=== PATIENT | male | born 1965 | race Caucasian/White ===

== ENCOUNTER → 2018-07-18 | Outpatient (CLI) | payer BC ==
[2018-07-18 08:39] LABS: BASOPHILS % 0.6 % (0.0-2.0); EOSINOPHILS % 3.5 % (0.0-5.0); HEMOGLOBIN. 16.7 g/dL (14.0-18.0); LYMPHOCYTES % 30.1 % (20.0-50.0); MEAN CORPUSCULAR HEMOGLOBIN 31.5 pg (28.0-32.0); MEAN CORPUSCULAR VOLUME 90.4 fL (80.0-94.0); MEAN PLATELET VOLUME 7.2 fl (7.4-10.4); MONOCYTES % 7.6 % (2.0-8.0); NEUTROPHILS % 58.2 % (40.0-76.0); PLATELET 332 x1000/uL (130-400); RED BLOOD CELL COUNT 5.31 mill/uL (4.7-6.1); RED CELL DISTRIBUTION WIDTH 13.3 % (11.6-14.6)
[2018-07-18 08:46] LABS: CHLORIDE 108 mEq/L (98-107)
[2018-07-18 08:53] LABS: LDL CHOLESTEROL 94 mg/dL (5-100); TOTAL IRON BINDING CAPACITY 276 ug/dL (250-450)
[2018-07-18 08:55] LABS: HDL CHOLESTEROL 40 mg/dL (40-59)
[2018-07-18 12:12] LABS: PROSTRATE SPECIFIC AG TOTAL 1.18 ng/mL (0.0-4.0)
== END | disposition home or self-care (01) ==
LOC: LAB 07:36
PROVIDERS: ATTEND Internal Medicine Geriatric Medicine
DX: Z00.01 Encounter for general adult medical examination with abnormal findings (principal); N39.0 Urinary tract infection, site not specified
CPT/HCPCS: 36415; 80061; 82607; 83036; 83540; 83550; 84153; 84443; 86592; G0103

== ENCOUNTER → 2018-11-06 | Outpatient (CLI) | payer BC | END | disposition home or self-care (01) | LOC: CARD 09:54 | PROVIDERS: ATTEND Specialist | DX: I10 Essential (primary) hypertension (principal); R00.2 Palpitations | CPT/HCPCS: 93306 ==

== ENCOUNTER → 2018-12-28 | Outpatient (CLI) | payer BC ==
[2018-12-28 14:04] LABS: CHLORIDE 108 mEq/L (98-107)
[2018-12-28 14:12] LABS: HDL CHOLESTEROL 43 mg/dL (40-59); LDL CHOLESTEROL 109 mg/dL (5-100)
== END | disposition home or self-care (01) ==
LOC: LAB 13:11
PROVIDERS: ATTEND Internal Medicine Geriatric Medicine
DX: I10 Essential (primary) hypertension (principal); E78.5 Hyperlipidemia, unspecified
CPT/HCPCS: 36415; 80061

== ENCOUNTER → 2019-01-06 | Outpatient (CLI) | payer BC | END | disposition home or self-care (01) | LOC: MRI 09:13 | PROVIDERS: ATTEND Internal Medicine Geriatric Medicine | DX: S86.012A Strain of left Achilles tendon, initial encounter (principal); X58.XXXA Exposure to other specified factors, initial encounter; Y93.89 Activity, other specified; Y92.89 Other specified places as the place of occurrence of the external cause; Y99.8 Other external cause status | CPT/HCPCS: 73721 ==

== ENCOUNTER → 2019-05-25 | Outpatient (CLI) | payer BC ==
[2019-05-25 10:28] LABS: BASOPHILS % 0.6 % (0.0-2.0); EOSINOPHILS % 4.5 % (0.0-5.0); HEMATOCRIT. 50.2 % (42.0-52.0); HEMOGLOBIN. 17.4 g/dL (14.0-18.0); LYMPHOCYTES % 27.3 % (20.0-50.0); MEAN CORPUSCULAR HEMOGLOBIN 31.6 pg (28.0-32.0); MEAN CORPUSCULAR VOLUME 91.3 fL (80.0-94.0); MEAN PLATELET VOLUME 7.6 fl (7.4-10.4); MONOCYTES % 7.7 % (2.0-8.0); NEUTROPHILS % 59.9 % (40.0-76.0); PLATELET 304 x1000/uL (130-400); RED CELL DISTRIBUTION WIDTH 13.4 % (11.6-14.6)
[2019-05-25 10:44] LABS: CHLORIDE 106 mEq/L (98-107)
[2019-05-25 10:53] LABS: LDL CHOLESTEROL 111 mg/dL (5-100)
[2019-05-25 10:54] LABS: HDL CHOLESTEROL 42 mg/dL (40-59)
== END | disposition home or self-care (01) ==
LOC: LAB 09:41
PROVIDERS: ATTEND Internal Medicine Geriatric Medicine
DX: I10 Essential (primary) hypertension (principal); E78.5 Hyperlipidemia, unspecified
CPT/HCPCS: 36415; 80053; 80061; 83735; 85025

== ENCOUNTER → 2020-01-14 | Outpatient (CLI) | payer BC | END | disposition home or self-care (01) | LOC: RAD 15:26 | PROVIDERS: ATTEND Podiatrist Foot & Ankle Surgery | DX: M19.072 Primary osteoarthritis, left ankle and foot (principal); M19.071 Primary osteoarthritis, right ankle and foot; M25.774 Osteophyte, right foot; M25.775 Osteophyte, left foot | CPT/HCPCS: 73630 ==

== ENCOUNTER → 2020-02-01 | Outpatient (CLI) | payer BC ==
[2020-02-01 15:24] LABS: CHLORIDE 108 mEq/L (98-107)
[2020-02-01 15:30] LABS: HDL CHOLESTEROL 49 mg/dL (40-59); TOTAL IRON BINDING CAPACITY 288 ug/dL (250-450)
[2020-02-01 15:32] LABS: BASOPHILS % 0.4 % (0.0-2.0); EOSINOPHILS % 1.8 % (0.0-5.0); HEMATOCRIT. 48.3 % (42.0-52.0); HEMOGLOBIN. 16.4 g/dL (14.0-18.0); LDL CHOLESTEROL 114 mg/dL (5-100); LYMPHOCYTES % 23.2 % (20.0-50.0); MEAN CORPUSCULAR HEMOGLOBIN 31.3 pg (28.0-32.0); MEAN CORPUSCULAR VOLUME 92.5 fL (80.0-94.0); MEAN PLATELET VOLUME 7.6 fl (7.4-10.4); MONOCYTES % 6.8 % (2.0-8.0); NEUTROPHILS % 67.8 % (40.0-76.0); PLATELET 319 x1000/uL (130-400); RED BLOOD CELL COUNT 5.22 mill/uL (4.7-6.1); RED CELL DISTRIBUTION WIDTH 13.3 % (11.6-14.6)
[2020-02-01 15:42] LABS: FOLIC ACID (FOLATE) SERUM 15.8 ng/mL (>5.38)
[2020-02-03 14:45] LABS: PROSTRATE SPECIFIC AG TOTAL 0.98 ng/mL (0.0-4.0)
== END | disposition home or self-care (01) ==
LOC: LAB 14:31
PROVIDERS: ATTEND Internal Medicine Geriatric Medicine
DX: Z00.01 Encounter for general adult medical examination with abnormal findings (principal); I10 Essential (primary) hypertension; E78.5 Hyperlipidemia, unspecified; F41.1 Generalized anxiety disorder
CPT/HCPCS: 36415; 80053; 80061; 82306; 82607; 82746; 83036; 83540; 83550; 84153; 84443; 84550; 85025; 86592; G0103

== ENCOUNTER 2020-05-16 09:13 | Emergency (ER) | payer BC ==
[~2020-05-16] VITALS: Ht 165.1 cm; Wt 87.0 kg
[2020-05-16] MEDS ORDERED: ASPIRIN 81MG TABLET PO ONE (09:30)
[2020-05-16] MEDS ORDERED: ACETAMINOPHEN 325MG TABLET PO ONE (09:45)
[2020-05-16 10:37] LABS: BASOPHILS % 0.2 % (0.0-2.0); EOSINOPHILS % 0.1 % (0.0-5.0); HEMATOCRIT. 50.6 % (42.0-52.0); HEMOGLOBIN. 17.4 g/dL (14.0-18.0); MEAN CORPUSCULAR HEMOGLOBIN 31.1 pg (28.0-32.0); MEAN CORPUSCULAR VOLUME 90.7 fL (80.0-94.0); MEAN PLATELET VOLUME 7.7 fl (7.4-10.4); MONOCYTES % 9.9 % (2.0-8.0); NEUTROPHILS % 65.8 % (40.0-76.0); PLATELET 214 x1000/uL (130-400); RED BLOOD CELL COUNT 5.58 mill/uL (4.7-6.1); RED CELL DISTRIBUTION WIDTH 12.7 % (11.6-14.6)
[2020-05-16 10:43] LABS: CHLORIDE 102 mEq/L (98-107)
[2020-05-16] MEDS ORDERED: POTASSIUM CHLORIDE 20MEQ TABLET SR PO SCH (10:45)
[2020-05-16] MEDS ORDERED: AMOX-424 MT (11:04)
[2020-05-16] MEDS ORDERED: DOXY150T9 MT (11:05)
[2020-05-16 13:00] VITALS: BP 125/86
== END 2020-05-16 13:00 | disposition home or self-care (01) ==
LOC: ER 09:13
DX: U07.1 COVID-19 (principal); J12.89 Other viral pneumonia; I10 Essential (primary) hypertension; E87.6 Hypokalemia; R74.01 Elevation of levels of liver transaminase levels
CPT/HCPCS: 36415; 71045; 80053; 83880; 84484; 85025; 87635; 93005; 99285

== ENCOUNTER → 2020-09-26 | Outpatient (CLI) | payer BC ==
[~2020-09-26] MED LIST: AMOX-424 MT; DOXY150T9 MT
[2020-09-26 10:20] LABS: CHLORIDE 108 mEq/L (98-107)
== END | disposition home or self-care (01) ==
LOC: LAB 09:14
PROVIDERS: ATTEND Internal Medicine Geriatric Medicine
DX: E87.6 Hypokalemia (principal)
CPT/HCPCS: 36415; 80048

== ENCOUNTER → 2020-11-03 | Outpatient (CLI) | payer BC | END | disposition home or self-care (01) | LOC: CT 09:57 | PROVIDERS: ATTEND Otolaryngology Otolaryngology/Facial Plastic Surgery | DX: J34.2 Deviated nasal septum (principal); J34.89 Other specified disorders of nose and nasal sinuses; J34.3 Hypertrophy of nasal turbinates; J30.9 Allergic rhinitis, unspecified; M47.812 Spondylosis without myelopathy or radiculopathy, cervical region; M48.02 Spinal stenosis, cervical region | CPT/HCPCS: 70486 ==

== ENCOUNTER → 2020-12-20 | Outpatient (CLI) | payer BC ==
[2020-12-20 09:52] LABS: CHLORIDE 108 mEq/L (98-107)
[2020-12-20 10:01] LABS: HDL CHOLESTEROL 43 mg/dL (40-59); LDL CHOLESTEROL 121 mg/dL (5-100)
== END | disposition home or self-care (01) ==
LOC: LAB 09:27
PROVIDERS: ATTEND Internal Medicine Geriatric Medicine
DX: I10 Essential (primary) hypertension (principal); E78.5 Hyperlipidemia, unspecified
CPT/HCPCS: 36415; 80053; 80061

== ENCOUNTER → 2021-01-03 | Outpatient (CLI) | payer BC ==
[2021-01-03 10:15] LABS: CLARITY URINE CLEAR (CLEAR); COLOR URINE YELLOW (YELLOW); KETONES URINE NEGATIVE (NEGATIVE); LEUKOCYTE ESTERASE URINE NEGATIVE (NEGATIVE); NITRITE URINE NEGATIVE (NEGATIVE); OCCULT BLOOD URINE NEGATIVE (NEGATIVE); PH URINE 5.5 (4.5-8.0); PROTEIN URINE TRACE (NEGATIVE); SPECIFIC GRAVITY URINE 1.023 (1.005-1.030); UROBILINOGEN URINE 0.2 E.U./dL (0.2-1.0)
== END | disposition home or self-care (01) ==
LOC: LAB 09:45
PROVIDERS: ATTEND Internal Medicine Geriatric Medicine
DX: N39.0 Urinary tract infection, site not specified (principal)
CPT/HCPCS: 81003

== ENCOUNTER → 2021-01-24 | Outpatient (CLI) | payer BC | END | disposition home or self-care (01) | LOC: US 09:12 | PROVIDERS: ATTEND Internal Medicine Geriatric Medicine | DX: N40.0 Benign prostatic hyperplasia without lower urinary tract symptoms (principal); R35.0 Frequency of micturition | CPT/HCPCS: 76857 ==

== ENCOUNTER 2021-04-18 13:11 | Inpatient (IN) | payer BC ==
[~2021-04-18] VITALS: Ht 165.1 cm; Wt 77.6 kg
[2021-04-18] MEDS ORDERED: MORPHINE SULFATE 4 MG/ML CPJ (NOT FOR IM USE) IV STA (13:50)
[2021-04-18] MEDS ORDERED: ONDANSETRON HCL 4MG/2ML INJ IV STA (13:50)
[2021-04-18] MEDS ORDERED: HYDRALAZINE 20MG/ML VIAL IV ONE (14:00)
[2021-04-18] MEDS ORDERED: GLUCAGON,HUMAN RECOMBINANT 1MG/VIAL IV ONE (14:00)
[2021-04-18] MEDS ORDERED: SODIUM CHLORIDE 0.9% 1,000 ML IV ONE (14:00)
[2021-04-18 15:36] LABS: BASOPHILS % 0.1 % (0.0-2.0); EOSINOPHILS % 0.1 % (0.0-5.0); HEMOGLOBIN. 16.7 g/dL (14.0-18.0); LYMPHOCYTES % 7.7 % (20.0-50.0); MEAN CORPUSCULAR HEMOGLOBIN 31.3 pg (28.0-32.0); MEAN CORPUSCULAR VOLUME 90.3 fL (80.0-94.0); MEAN PLATELET VOLUME 7.4 fl (7.4-10.4); MONOCYTES % 5.3 % (2.0-8.0); NEUTROPHILS % 86.8 % (40.0-76.0); PLATELET 347 x1000/uL (130-400); RED BLOOD CELL COUNT 5.32 mill/uL (4.7-6.1); RED CELL DISTRIBUTION WIDTH 13.3 % (11.6-14.6)
[2021-04-18 15:43] LABS: CHLORIDE 105 mEq/L (98-107)
[2021-04-18 15:46] LABS: CLARITY URINE CLEAR (CLEAR); COLOR URINE YELLOW (YELLOW); KETONES URINE NEGATIVE (NEGATIVE); LEUKOCYTE ESTERASE URINE NEGATIVE (NEGATIVE); NITRITE URINE NEGATIVE (NEGATIVE); OCCULT BLOOD URINE TRACE (NEGATIVE); PROTEIN URINE NEGATIVE (NEGATIVE); SPECIFIC GRAVITY URINE 1.003 (1.005-1.030); UROBILINOGEN URINE 0.2 E.U./dL (0.2-1.0)
[2021-04-18] MEDS ORDERED: ACETAMINOPHEN 325MG TABLET PO PRN (20:30)
[2021-04-18] MEDS ORDERED: IPRATROPIUM/ALBUTEROL 0.5-3(2.5)MG/3ML NEB HHN PRN (20:30)
[2021-04-18] MEDS ORDERED: LACTULOSE 20G/30ML UDC PO NR (20:30)
[2021-04-18] MEDS ORDERED: CLONIDINE 0.1MG TABLET PO PRN (20:30)
[2021-04-18] MEDS ORDERED: MAGNESIUM/ALUMINUM HYDROXIDE/SIMETHICONE 30ML UDC PO PRN (20:30)
[2021-04-18] MEDS ORDERED: ONDANSETRON HCL 4MG/2ML INJ IV PRN (20:30)
[2021-04-18] MEDS ORDERED: PANTOPRAZOLE 40MG DR TABLET PO NR (20:30)
[2021-04-18 21:00] LABS: HEPATITIS B SURFACE ANTIGEN NEGATIVE
[2021-04-18] MEDS ORDERED: POTASSIUM CHLORIDE 20MEQ TABLET SR PO NR (21:41)
[2021-04-18] MEDS: NEBIVOLOL HCL 5 MG TABLET PO SCH (22:17)
[2021-04-18] MEDS: TAMSULOSIN HCL 0.4MG SR CAPSULE PO SCH (22:17)
[2021-04-18] MEDS: ENOXAPARIN 40MG/0.4ML SYR SUBCUT SCH (22:19)
[2021-04-18] MEDS: SODIUM CHL 0.45% + KCL 20MEQ/L 1,000 ML IV SCH (22:59)
[2021-04-19 05:29] LABS: BASOPHILS % 0.3 % (0.0-2.0); EOSINOPHILS % 0.5 % (0.0-5.0); HEMATOCRIT. 48.8 % (42.0-52.0); LYMPHOCYTES % 11.8 % (20.0-50.0); MEAN CORPUSCULAR HEMOGLOBIN 31.4 pg (28.0-32.0); MEAN CORPUSCULAR VOLUME 90.4 fL (80.0-94.0); MONOCYTES % 4.9 % (2.0-8.0); NEUTROPHILS % 82.5 % (40.0-76.0); RED CELL DISTRIBUTION WIDTH 13.3 % (11.6-14.6)
[2021-04-19] MEDS ORDERED: HYDRALAZINE 20MG/ML VIAL IV PRN (05:30)
[2021-04-19 05:34] LABS: CHLORIDE 107 mEq/L (98-107)
[2021-04-19 07:45] LABS: MEAN PLATELET VOLUME 7.7 fl (7.4-10.4); PLATELET 372 x1000/uL (130-400)
[2021-04-19] MEDS: SODIUM CHL 0.45% + KCL 20MEQ/L 1,000 ML IV SCH ×2 (08:30→22:00)
[2021-04-19] MEDS: PANTOPRAZOLE 40MG DR TABLET PO SCH (08:34)
[2021-04-19] MEDS: NEBIVOLOL HCL 5 MG TABLET PO SCH (08:40)
[2021-04-19] MEDS: TAMSULOSIN HCL 0.4MG SR CAPSULE PO SCH (08:40)
[2021-04-19] MEDS ORDERED: TAMSULOSIN HCL 0.4MG SR CAPSULE PO SCH (09:00)
[2021-04-19 10:30] VITALS: BP 124/85
[2021-04-19] MEDS: LACTULOSE 20G/30ML UDC PO SCH ×2 (14:11→21:59)
[2021-04-19 15:41] LABS: *BARBITURATES SCREEN URINE NEGATIVE (NEGATIVE); *BENZODIAZEPINES SCREEN URINE NEGATIVE (NEGATIVE); *COCAINE SCREEN URINE NEGATIVE (NEGATIVE); METHADONE URINE SCREEN NEGATIVE (NEGATIVE); OPIATES URINE SCREEN NEGATIVE (NEGATIVE); PHENCYCLIDINE URINE SCREEN NEGATIVE (NEGATIVE)
[2021-04-19 15:42] LABS: *AMPHETAMINES SCREEN URINE NEGATIVE (NEGATIVE); CANNABINOID URINE SCREEN NEGATIVE (NEGATIVE)
[2021-04-19 16:00] VITALS: BP 143/90
[2021-04-19 16:35] LABS: PROTHROMBIN TIME 11.1 sec (9.6-11.0)
[2021-04-19 20:00] VITALS: BP 149/100
[2021-04-19] MEDS: ENOXAPARIN 40MG/0.4ML SYR SUBCUT SCH (21:59)
[2021-04-20] VITALS: BP 152/92
[2021-04-20] MEDS: LACTULOSE 20G/30ML UDC PO SCH ×3 (06:35→20:53)
[2021-04-20] MEDS: PANTOPRAZOLE 40MG DR TABLET PO SCH (06:35)
[2021-04-20 06:45] LABS: BASOPHILS % 0.5 % (0.0-2.0); EOSINOPHILS % 5.3 % (0.0-5.0); HEMATOCRIT. 44.3 % (42.0-52.0); HEMOGLOBIN. 15.3 g/dL (14.0-18.0); LYMPHOCYTES % 25.3 % (20.0-50.0); MEAN CORPUSCULAR HEMOGLOBIN 31.7 pg (28.0-32.0); MEAN CORPUSCULAR VOLUME 91.9 fL (80.0-94.0); MEAN PLATELET VOLUME 8.4 fl (7.4-10.4); MONOCYTES % 8.9 % (2.0-8.0); PLATELET 300 x1000/uL (130-400); RED BLOOD CELL COUNT 4.82 mill/uL (4.7-6.1); RED CELL DISTRIBUTION WIDTH 13.5 % (11.6-14.6)
[2021-04-20] MEDS: SODIUM CHL 0.45% + KCL 20MEQ/L 1,000 ML IV SCH ×3 (06:47→20:54)
[2021-04-20 07:23] LABS: CHLORIDE 109 mEq/L (98-107)
[2021-04-20 08:00] VITALS: BP 151/101
[2021-04-20] MEDS: INFLUENZA VACCINE 05/PF 0.5 ML SYRINGE IM ONE ×2 (09:00→15:18)
[2021-04-20] MEDS ORDERED: POTASSIUM CHLORIDE 20MEQ TABLET SR PO SCH (09:00)
[2021-04-20] MEDS: TAMSULOSIN HCL 0.4MG SR CAPSULE PO SCH (09:15)
[2021-04-20] MEDS: NEBIVOLOL HCL 5 MG TABLET PO SCH (09:15)
[2021-04-20] MEDS: AMLODIPINE 5MG TABLET PO SCH (09:16)
[2021-04-20 12:00] VITALS: BP 145/95
[2021-04-20 16:00] VITALS: BP 136/97
[2021-04-20] MEDS: POTASSIUM CHLORIDE 20MEQ TABLET SR PO SCH (17:17)
[2021-04-20 20:00] VITALS: BP 148/92
[2021-04-20] MEDS: ENOXAPARIN 40MG/0.4ML SYR SUBCUT SCH (20:53)
[2021-04-21] VITALS: BP 162/92
[2021-04-21 04:00] VITALS: BP 152/92
[2021-04-21] MEDS: SODIUM CHL 0.45% + KCL 20MEQ/L 1,000 ML IV SCH (05:52)
[2021-04-21] MEDS: LACTULOSE 20G/30ML UDC PO SCH (05:52)
[2021-04-21] MEDS: POTASSIUM CHLORIDE 20MEQ TABLET SR PO SCH (05:52)
[2021-04-21] MEDS: PANTOPRAZOLE 40MG DR TABLET PO SCH (05:52)
[2021-04-21 06:25] LABS: BASOPHILS % 0.4 % (0.0-2.0); EOSINOPHILS % 6.2 % (0.0-5.0); HEMATOCRIT. 44.8 % (42.0-52.0); HEMOGLOBIN. 15.6 g/dL (14.0-18.0); LYMPHOCYTES % 28.4 % (20.0-50.0); MEAN CORPUSCULAR HEMOGLOBIN 31.9 pg (28.0-32.0); MEAN CORPUSCULAR VOLUME 91.8 fL (80.0-94.0); MEAN PLATELET VOLUME 8.2 fl (7.4-10.4); MONOCYTES % 9.6 % (2.0-8.0); NEUTROPHILS % 55.4 % (40.0-76.0); PLATELET 294 x1000/uL (130-400); RED BLOOD CELL COUNT 4.89 mill/uL (4.7-6.1); RED CELL DISTRIBUTION WIDTH 13.4 % (11.6-14.6)
[2021-04-21 06:27] LABS: CHLORIDE 108 mEq/L (98-107)
[2021-04-21 08:00] VITALS: BP 145/100
[2021-04-21] MEDS: TAMSULOSIN HCL 0.4MG SR CAPSULE PO SCH (08:09)
[2021-04-21] MEDS: NEBIVOLOL HCL 5 MG TABLET PO SCH (08:09)
[2021-04-21] MEDS: AMLODIPINE 5MG TABLET PO SCH (08:09)
[2021-04-21] MEDS ORDERED: LACT10SO3 MT (09:35)
[2021-04-21] MEDS ORDERED: PANT40TA51 PO (09:35)
[2021-04-21] MEDS ORDERED: LACT10SO7 PO (09:35)
[2021-04-21] MEDS ORDERED: PANT40TA51 MT (09:35)
[2021-04-21 11:32] VITALS: BP 145/92
[2021-04-21] MEDS ORDERED: LACTULOSE 20G/30ML UDC PO SCH (14:00)
== END 2021-04-21 18:20 | disposition home or self-care (01) | DRG 443 ==
LOC: ER 13:11 → 8WST 18:08 → EDBEDREQTM 18:13 → EDBEDREQ 18:13 → EDBEDREQSVC 21:43 → EDBEDREQTM 04-19 06:36 → ENRESERV 04-19 09:19
PROVIDERS: ADMIT Internal Medicine Geriatric Medicine; ATTEND Internal Medicine Geriatric Medicine
DX: K72.00 Acute and subacute hepatic failure without coma (principal); K57.90 Diverticulosis of intestine, part unspecified, without perforation or abscess without bleeding; N40.0 Benign prostatic hyperplasia without lower urinary tract symptoms; N20.0 Calculus of kidney; R73.9 Hyperglycemia, unspecified; I10 Essential (primary) hypertension; E87.6 Hypokalemia; K76.0 Fatty (change of) liver, not elsewhere classified; R13.10 Dysphagia, unspecified; D72.829 Elevated white blood cell count, unspecified; Z20.822 Contact with and (suspected) exposure to COVID-19; R16.2 Hepatomegaly with splenomegaly, not elsewhere classified; E80.6 Other disorders of bilirubin metabolism; Z90.49 Acquired absence of other specified parts of digestive tract; Z79.2 Long term (current) use of antibiotics; Z79.899 Other long term (current) drug therapy
CPT/HCPCS: 36415; 70360; 71045; 74176; 76700; 80053; 80076; 80305; 80320; 81003; 82105; 82140; 82248; 83036; 83735; 84443; 84484; 85025; 86038; 86301; 86705; 86709; 86803; 87340; 87426; 90686; 93005; 99285; J0360; J1610; J1650; J2270; J2405; J3480; J7030; J7040; G0480

== ENCOUNTER → 2021-04-25 | Outpatient (CLI) | payer BC ==
[~2021-04-25] MED LIST changes: +LACT10SO3 MT; +LACT10SO7 PO; +PANT40TA51 MT; +PANT40TA51 PO
[2021-04-25 19:02] LABS: BASOPHILS % 0.5 % (0.0-2.0); EOSINOPHILS % 2.4 % (0.0-5.0); HEMATOCRIT. 47.1 % (42.0-52.0); HEMOGLOBIN. 16.3 g/dL (14.0-18.0); MEAN CORPUSCULAR HEMOGLOBIN 31.7 pg (28.0-32.0); MEAN CORPUSCULAR VOLUME 91.6 fL (80.0-94.0); MEAN PLATELET VOLUME 7.4 fl (7.4-10.4); MONOCYTES % 6.8 % (2.0-8.0); NEUTROPHILS % 61.3 % (40.0-76.0); PLATELET 319 x1000/uL (130-400); RED BLOOD CELL COUNT 5.14 mill/uL (4.7-6.1); RED CELL DISTRIBUTION WIDTH 13.4 % (11.6-14.6)
[2021-04-25 19:12] LABS: PROTHROMBIN TIME 10.9 sec (9.6-11.0)
[2021-04-25 19:18] LABS: CHLORIDE 107 mEq/L (98-107)
[2021-04-25 19:20] LABS: AMYLASE 99 IU/L (25-115); GAMMA GLUTAMYL TRANSPEPTIDASE 280 IU/L (11-50)
[2021-04-27 07:11] LABS: HBSAG SCREEN Negative (Negative); HEPATITIS A ANTIBODY TOTAL Positive (Negative); HEPATITIS C AB <0.1 s/co ratio (0.0-0.9)
== END | disposition home or self-care (01) ==
LOC: LAB 18:16
PROVIDERS: ATTEND Internal Medicine Gastroenterology
DX: Z00.00 Encounter for general adult medical examination without abnormal findings (principal)
CPT/HCPCS: 36415; 80053; 82105; 82150; 82378; 82977; 85025; 86301; 86706; 86708; 86803; 87340

== ENCOUNTER → 2021-05-03 | Outpatient (CLI) | payer BC ==
[~2021-05-03] MED LIST changes: +GADOTERATE MEGLUMINE 5 MMOL/10 ML VIAL IV ONE
== END | disposition home or self-care (01) ==
LOC: MRI 10:20
PROVIDERS: ATTEND Internal Medicine Gastroenterology
DX: K76.89 Other specified diseases of liver (principal); K76.0 Fatty (change of) liver, not elsewhere classified; R10.9 Unspecified abdominal pain
CPT/HCPCS: 74183; A9577

== ENCOUNTER → 2021-07-21 | Outpatient (CLI) | payer BC ==
[~2021-07-21] MED LIST changes: -GADOTERATE MEGLUMINE 5 MMOL/10 ML VIAL IV ONE
[2021-07-21 08:25] LABS: CHLORIDE 108 mEq/L (98-107)
== END | disposition home or self-care (01) ==
LOC: LAB 07:52
PROVIDERS: ATTEND Internal Medicine Geriatric Medicine
DX: I10 Essential (primary) hypertension (principal)
CPT/HCPCS: 36415; 80053; 86301

== ENCOUNTER → 2021-08-15 | Outpatient (CLI) | payer BC | END | disposition home or self-care (01) | LOC: RAD 15:44 | PROVIDERS: ATTEND Internal Medicine Geriatric Medicine | DX: M25.561 Pain in right knee (principal) | CPT/HCPCS: 73562 ==

== ENCOUNTER → 2021-08-24 | Outpatient (CLI) | payer BC | END | disposition home or self-care (01) | LOC: MRI 15:57 | DX: S83.232A Complex tear of medial meniscus, current injury, left knee, initial encounter (principal); M17.12 Unilateral primary osteoarthritis, left knee; M25.462 Effusion, left knee; M25.762 Osteophyte, left knee; R93.6 Abnormal findings on diagnostic imaging of limbs; X58.XXXA Exposure to other specified factors, initial encounter; Y93.89 Activity, other specified; Y92.89 Other specified places as the place of occurrence of the external cause; Y99.8 Other external cause status | CPT/HCPCS: 73721 ==

== ENCOUNTER → 2021-09-26 | Outpatient (CLI) | payer BC ==
[2021-09-26 16:56] LABS: BASOPHILS % 0.6 % (0.0-2.0); EOSINOPHILS % 4.7 % (0.0-5.0); HEMATOCRIT. 45.6 % (42.0-52.0); HEMOGLOBIN. 15.8 g/dL (14.0-18.0); LYMPHOCYTES % 30.4 % (20.0-50.0); MEAN CORPUSCULAR HEMOGLOBIN 30.9 pg (28.0-32.0); MEAN CORPUSCULAR VOLUME 89.2 fL (80.0-94.0); MEAN PLATELET VOLUME 6.8 fl (7.4-10.4); MONOCYTES % 9.2 % (2.0-8.0); NEUTROPHILS % 55.1 % (40.0-76.0); PLATELET 348 x1000/uL (130-400); RED BLOOD CELL COUNT 5.11 mill/uL (4.7-6.1); RED CELL DISTRIBUTION WIDTH 13.2 % (11.6-14.6)
[2021-09-26 16:58] LABS: CLARITY URINE CLEAR (CLEAR); COLOR URINE YELLOW (YELLOW); KETONES URINE TRACE (NEGATIVE); LEUKOCYTE ESTERASE URINE NEGATIVE (NEGATIVE); NITRITE URINE NEGATIVE (NEGATIVE); OCCULT BLOOD URINE NEGATIVE (NEGATIVE); PH URINE 5.5 (4.5-8.0); PROTEIN URINE NEGATIVE (NEGATIVE); SPECIFIC GRAVITY URINE 1.028 (1.005-1.030); UROBILINOGEN URINE 0.2 E.U./dL (0.2-1.0)
[2021-09-26 17:07] LABS: PARTIAL THROMBOPLASTIN TIME 29.9 sec (23.4-31.0); PROTHROMBIN TIME 10.8 sec (9.6-11.0)
[2021-09-26 17:12] LABS: CHLORIDE 111 mEq/L (98-107)
== END | disposition home or self-care (01) ==
LOC: RAD 15:45
PROVIDERS: ATTEND Internal Medicine Geriatric Medicine
DX: Z01.812 Encounter for preprocedural laboratory examination (principal); R73.09 Other abnormal glucose; I10 Essential (primary) hypertension; N39.0 Urinary tract infection, site not specified
CPT/HCPCS: 36415; 71046; 80053; 81003; 83036; 85025

== ENCOUNTER → 2021-10-06 | Day surgery (SDC) | payer BC ==
[~2021-10-06] VITALS: Ht 165.1 cm; Wt 80.7 kg
[~2021-10-06] MED LIST changes: +AMLO5TAB88 MT; +CEFAZOLIN SODIUM 1000MG/VIAL ONE; +DEXAMETHASONE 4MG/ML 1ML VIAL ONE; +EPINEPHRINE 1:1000 1 MG/ML AMP ONE; +FENTANYL CITRATE/PF 50MCG/ML 2ML VIAL ONE; +KETOROLAC 30MG/ML VIAL ONE; +LACTATED RINGERS 1,000 ML IV SCH; +LIDOCAINE HCL 1% 50ML VIAL (10MG/ML) ONE; +LIDOCAINE HCL 2% JELLY 5ML ONE; +LIDOCAINE HCL/EPINEPHRINE 1%-EPI 1:100,000 20 ML VIAL ONE; +MIDAZOLAM HCL 2 MG/2 ML VIAL ONE; +ONDANSETRON HCL 4MG/2ML INJ ONE; +POLYMYXIN B SULFATE 500000 UNITS/VIAL ONE; +PROPOFOL 200MG/20ML VIAL IV ONE; +TRIAMCINOLONE ACETONIDE 40MG/ML 1ML VIAL ONE
== END | disposition home or self-care (01) ==
LOC: OR 05:25
DX: S83.242A Other tear of medial meniscus, current injury, left knee, initial encounter (principal); S83.282A Other tear of lateral meniscus, current injury, left knee, initial encounter; M94.262 Chondromalacia, left knee; I10 Essential (primary) hypertension; M19.90 Unspecified osteoarthritis, unspecified site; Z79.899 Other long term (current) drug therapy; Z98.890 Other specified postprocedural states; Z20.822 Contact with and (suspected) exposure to COVID-19; X58.XXXA Exposure to other specified factors, initial encounter; Y93.89 Activity, other specified; Y92.89 Other specified places as the place of occurrence of the external cause; Y99.8 Other external cause status
CPT/HCPCS: 29880; 87426; 97116; 97161; C9803; J0690; J1100; J1885; J2250; J2405; J2704; J3010; J3301; J3490

== ENCOUNTER → 2021-12-01 | Outpatient (CLI) | payer BC ==
[~2021-12-01] MED LIST changes: -CEFAZOLIN SODIUM 1000MG/VIAL ONE; -DEXAMETHASONE 4MG/ML 1ML VIAL ONE; -EPINEPHRINE 1:1000 1 MG/ML AMP ONE; -FENTANYL CITRATE/PF 50MCG/ML 2ML VIAL ONE; -KETOROLAC 30MG/ML VIAL ONE; -LACTATED RINGERS 1,000 ML IV SCH; -LIDOCAINE HCL 1% 50ML VIAL (10MG/ML) ONE; -LIDOCAINE HCL 2% JELLY 5ML ONE; -LIDOCAINE HCL/EPINEPHRINE 1%-EPI 1:100,000 20 ML VIAL ONE; -MIDAZOLAM HCL 2 MG/2 ML VIAL ONE; -ONDANSETRON HCL 4MG/2ML INJ ONE; -POLYMYXIN B SULFATE 500000 UNITS/VIAL ONE; -PROPOFOL 200MG/20ML VIAL IV ONE; -TRIAMCINOLONE ACETONIDE 40MG/ML 1ML VIAL ONE
[2021-12-01 10:35] LABS: CLARITY URINE CLEAR (CLEAR); COLOR URINE YELLOW (YELLOW); KETONES URINE NEGATIVE (NEGATIVE); LEUKOCYTE ESTERASE URINE NEGATIVE (NEGATIVE); NITRITE URINE NEGATIVE (NEGATIVE); OCCULT BLOOD URINE NEGATIVE (NEGATIVE); PH URINE 6.5 (4.5-8.0); PROTEIN URINE NEGATIVE (NEGATIVE); SPECIFIC GRAVITY URINE 1.017 (1.005-1.030); UROBILINOGEN URINE 0.2 E.U./dL (0.2-1.0)
[2021-12-01 10:38] LABS: BASOPHILS % 0.6 % (0.0-2.0); EOSINOPHILS % 3.8 % (0.0-5.0); HEMATOCRIT. 47.4 % (42.0-52.0); HEMOGLOBIN. 16.3 g/dL (14.0-18.0); LYMPHOCYTES % 34.1 % (20.0-50.0); MEAN CORPUSCULAR HEMOGLOBIN 31.1 pg (28.0-32.0); MEAN CORPUSCULAR VOLUME 90.4 fL (80.0-94.0); MEAN PLATELET VOLUME 6.9 fl (7.4-10.4); MONOCYTES % 9.1 % (2.0-8.0); NEUTROPHILS % 52.4 % (40.0-76.0); PLATELET 352 x1000/uL (130-400); RED BLOOD CELL COUNT 5.25 mill/uL (4.7-6.1); RED CELL DISTRIBUTION WIDTH 13.7 % (11.6-14.6)
[2021-12-01 10:43] LABS: CHLORIDE 106 mEq/L (98-107)
[2021-12-01 10:57] LABS: AMYLASE 79 IU/L (25-115); HDL CHOLESTEROL 42 mg/dL (40-59); LDL CHOLESTEROL 107 mg/dL (5-100); TOTAL IRON BINDING CAPACITY 276 ug/dL (250-450)
[2021-12-01 11:54] LABS: VITAMIN B12 SERUM 472 pg/mL (211-911)
[2021-12-01 12:01] LABS: FOLIC ACID (FOLATE) SERUM > 20.00 ng/mL (>5.38)
[2021-12-01 14:17] LABS: FERRITIN 133 ng/mL (22-322); PROSTRATE SPECIFIC AG TOTAL 1.28 ng/mL (0.0-4.0)
== END | disposition home or self-care (01) ==
LOC: LAB 09:41
PROVIDERS: ATTEND Internal Medicine Geriatric Medicine
DX: Z00.01 Encounter for general adult medical examination with abnormal findings (principal); I10 Essential (primary) hypertension; K29.30 Chronic superficial gastritis without bleeding; R73.09 Other abnormal glucose; E78.5 Hyperlipidemia, unspecified; F41.1 Generalized anxiety disorder; E87.6 Hypokalemia; R97.8 Other abnormal tumor markers
CPT/HCPCS: 36415; 80053; 80061; 81003; 82150; 82306; 82607; 82728; 82746; 83036; 83540; 83550; 84153; 84443; 85025; 86592; G0103

== ENCOUNTER 2022-01-26 03:05 | Emergency (ER) | payer BC ==
[~2022-01-26] VITALS: Ht 162.6 cm; Wt 82.3 kg
[2022-01-26] MEDS ORDERED: MORPHINE SULFATE 4 MG/ML CPJ (NOT FOR IM USE) IV ONE (04:00)
[2022-01-26 04:13] LABS: BASOPHILS % 0.4 % (0.0-2.0); CHLORIDE 108 mEq/L (98-107); EOSINOPHILS % 2.7 % (0.0-5.0); HEMATOCRIT. 49.3 % (42.0-52.0); MEAN CORPUSCULAR HEMOGLOBIN 31.4 pg (28.0-32.0); MEAN CORPUSCULAR VOLUME 90.9 fL (80.0-94.0); MEAN PLATELET VOLUME 7.4 fl (7.4-10.4); MONOCYTES % 6.3 % (2.0-8.0); NEUTROPHILS % 73.6 % (40.0-76.0); PLATELET 379 x1000/uL (130-400); RED BLOOD CELL COUNT 5.43 mill/uL (4.7-6.1); RED CELL DISTRIBUTION WIDTH 13.2 % (11.6-14.6)
[2022-01-26 04:23] LABS: ETHANOL BLOOD < 10 mg/dL
[2022-01-26] MEDS ORDERED: KETOROLAC 15MG/ML VIAL IV ONE (05:00)
[2022-01-26] MEDS ORDERED: SODIUM CHLORIDE 0.9% 1,000 ML IV ONE (05:30)
[2022-01-26] MEDS ORDERED: POTASSIUM CHLORIDE 20MEQ TABLET SR PO NR (05:30)
[2022-01-26 05:43] VITALS: BP 165/93
[2022-01-26] MEDS ORDERED: MORPHINE SULFATE 4 MG/ML CPJ (NOT FOR IM USE) IV SCH (07:45)
[2022-01-26 07:55] LABS: CLARITY URINE CLEAR (CLEAR); COLOR URINE YELLOW (YELLOW); KETONES URINE NEGATIVE (NEGATIVE); LEUKOCYTE ESTERASE URINE NEGATIVE (NEGATIVE); NITRITE URINE NEGATIVE (NEGATIVE); OCCULT BLOOD URINE TRACE (NEGATIVE); PROTEIN URINE TRACE (NEGATIVE); SPECIFIC GRAVITY URINE 1.014 (1.005-1.030); UROBILINOGEN URINE 0.2 E.U./dL (0.2-1.0)
[2022-01-26] MEDS ORDERED: DEXAMETHASONE 10 MG/ML VIAL IV SCH (08:00)
[2022-01-26 08:14] LABS: *AMPHETAMINES SCREEN URINE NEGATIVE (NEGATIVE); *BARBITURATES SCREEN URINE NEGATIVE (NEGATIVE); *BENZODIAZEPINES SCREEN URINE NEGATIVE (NEGATIVE); *COCAINE SCREEN URINE NEGATIVE (NEGATIVE); CANNABINOID URINE SCREEN NEGATIVE (NEGATIVE); METHADONE URINE SCREEN NEGATIVE (NEGATIVE); OPIATES URINE SCREEN PRESUMTIVE POSITIVE (NEGATIVE); PHENCYCLIDINE URINE SCREEN NEGATIVE (NEGATIVE)
[2022-01-26] MEDS ORDERED: HYDR-4001 MT ×2 (08:58→11:03)
[2022-01-26] MEDS ORDERED: CYCL10TA21 MT ×2 (08:58→11:03)
[2022-01-26] MEDS ORDERED: IBUP-2028 MT ×2 (08:58→11:03)
== END 2022-01-26 10:14 | disposition home or self-care (01) ==
LOC: ER 03:21
DX: M54.41 Lumbago with sciatica, right side (principal); E87.6 Hypokalemia; I10 Essential (primary) hypertension; I49.9 Cardiac arrhythmia, unspecified; Z79.899 Other long term (current) drug therapy
CPT/HCPCS: 36415; 74176; 80053; 80305; 80320; 81003; 83690; 84484; 85025; 96361; 96374; 96375; 99284; J1885; J2270; G0480

== ENCOUNTER 2022-01-30 14:33 | Inpatient (IN) | payer BC ==
[~2022-01-30] VITALS: Ht 165.1 cm; Wt 74.4 kg
[~2022-01-30 14:33] MED LIST changes: +CYCL10TA21 MT; +HYDR-4001 MT; +IBUP-2028 MT
[2022-01-30] MEDS ORDERED: ACETAMINOPHEN 325MG TABLET PO STA (16:50)
[2022-01-30] MEDS ORDERED: SODIUM CHLORIDE 0.9% 1000ML BAG (SEPSIS BOLUS) IV ONE (17:00)
[2022-01-30 17:28] LABS: HEMATOCRIT. 43.3 % (42.0-52.0); HEMOGLOBIN. 14.8 g/dL (14.0-18.0); MEAN CORPUSCULAR HEMOGLOBIN 31.5 pg (28.0-32.0); MEAN CORPUSCULAR VOLUME 92.1 fL (80.0-94.0); MEAN PLATELET VOLUME 7.8 fl (7.4-10.4); PLATELET 306 x1000/uL (130-400); RED BLOOD CELL COUNT 4.71 mill/uL (4.7-6.1); RED CELL DISTRIBUTION WIDTH 13.3 % (11.6-14.6)
[2022-01-30 17:33] LABS: CHLORIDE 97 mEq/L (98-107)
[2022-01-30 17:57] LABS: PLATELET ESTIMATE NORMAL
[2022-01-30 18:13] LABS: CLARITY URINE CLOUDY (CLEAR); COLOR URINE ORANGE (YELLOW); KETONES URINE NEGATIVE (NEGATIVE); LEUKOCYTE ESTERASE URINE TRACE (NEGATIVE); NITRITE URINE POSITIVE (NEGATIVE); OCCULT BLOOD URINE 2+ (NEGATIVE); PH URINE 5.5 (4.5-8.0); PROTEIN URINE 3+ (NEGATIVE); SPECIFIC GRAVITY URINE 1.022 (1.005-1.030)
[2022-01-30] MEDS ORDERED: CEFTRIAXONE 1 G PREMIX 50 ML IV ONE (18:30)
[2022-01-30] MEDS ORDERED: POTASSIUM CHLORIDE 20MEQ TABLET SR PO ONE (18:30)
[2022-01-30] MEDS ORDERED: POTASSIUM CHLORIDE INJ 40 MEQ in DEXT 5% WATER 500 ML IV ONE (18:30)
[2022-01-30 20:40] VITALS: BP 144/93
[2022-01-30] MEDS ORDERED: ZOLPIDEM TARTRATE 5MG TABLET PO PRN (22:30)
[2022-01-30] MEDS ORDERED: ONDANSETRON HCL 4MG/2ML INJ IV PRN (22:30)
[2022-01-30] MEDS ORDERED: ACETAMINOPHEN 325MG TABLET PO PRN (22:30)
[2022-01-30] MEDS ORDERED: CLONIDINE 0.1MG TABLET PO PRN (22:30)
[2022-01-30] MEDS ORDERED: MAGNESIUM/ALUMINUM HYDROXIDE/SIMETHICONE 30ML UDC PO PRN (22:30)
[2022-01-30] MEDS ORDERED: HYDROCODONE/ACETAMINOPHEN 5/325MG TABLET PO PRN (23:00)
[2022-01-30] MEDS: DEXT 5%/0.45% NACL KCL 40MEQ/L 1,000 ML IV SCH (23:25)
[2022-01-30] MEDS ORDERED: PIPERACILLIN/TAZOBACTAM 3.375 G in DEXTROSE 5% WATER 50 ML IV SCH (23:30)
[2022-01-31] VITALS (17 sets, daily range): BP systolic 110–146; BP diastolic 79–100
[2022-01-31] MEDS ORDERED: VANCOMYCIN 1500MG in DEXTROSE 5% WATER 250ML IV NR (01:00)
[2022-01-31] MEDS: PIPERACILLIN/TAZOBACTAM 3.375 G in DEXTROSE 5% WATER 50 ML IV SCH ×2 (06:10→19:26)
[2022-01-31 07:11] LABS: HEMATOCRIT. 36.7 % (42.0-52.0); HEMOGLOBIN. 12.3 g/dL (14.0-18.0); MEAN CORPUSCULAR HEMOGLOBIN 31.8 pg (28.0-32.0); MEAN CORPUSCULAR VOLUME 94.7 fL (80.0-94.0); MEAN PLATELET VOLUME 8.8 fl (7.4-10.4); PLATELET 239 x1000/uL (130-400); RED BLOOD CELL COUNT 3.88 mill/uL (4.7-6.1); RED CELL DISTRIBUTION WIDTH 13.1 % (11.6-14.6)
[2022-01-31 07:57] LABS: CHLORIDE 101 mEq/L (98-107)
[2022-01-31 08:30] LABS: INR 1.1; PROTHROMBIN TIME 11.9 sec (9.6-11.0)
[2022-01-31] MEDS: ACETAMINOPHEN 325MG TABLET PO PRN (08:35)
[2022-01-31] MEDS: ENOXAPARIN 40MG/0.4ML SYR SUBCUT SCH (08:36)
[2022-01-31] MEDS: DOCUSATE SODIUM 250MG CAPSULE PO SCH (08:36)
[2022-01-31] MEDS: PANTOPRAZOLE SODIUM 40 MG/VIAL IV SCH (08:36)
[2022-01-31] MEDS ORDERED: LIDOCAINE HCL/PF 1% 10 MG/ML 5ML VIAL ONE (08:37)
[2022-01-31 08:47] LABS: CLARITY URINE CLEAR (CLEAR); COLOR URINE DARK YELLOW (YELLOW); KETONES URINE NEGATIVE (NEGATIVE); LEUKOCYTE ESTERASE URINE TRACE (NEGATIVE); NITRITE URINE POSITIVE (NEGATIVE); OCCULT BLOOD URINE 2+ (NEGATIVE); PH URINE 5.5 (4.5-8.0); PROTEIN URINE 2+ (NEGATIVE); SPECIFIC GRAVITY URINE 1.018 (1.005-1.030)
[2022-01-31 09:28] LABS: *AMPHETAMINES SCREEN URINE NEGATIVE (NEGATIVE); *BARBITURATES SCREEN URINE NEGATIVE (NEGATIVE); *BENZODIAZEPINES SCREEN URINE NEGATIVE (NEGATIVE); *COCAINE SCREEN URINE NEGATIVE (NEGATIVE); CANNABINOID URINE SCREEN NEGATIVE (NEGATIVE); METHADONE URINE SCREEN NEGATIVE (NEGATIVE); OPIATES URINE SCREEN NEGATIVE (NEGATIVE); PHENCYCLIDINE URINE SCREEN NEGATIVE (NEGATIVE)
[2022-01-31] MEDS ORDERED: POTASSIUM CHLORIDE INJ 40 MEQ in DEXT 5% WATER 250 ML IV ONE (10:30)
[2022-01-31] MEDS: DEXT 5%/0.45% NACL KCL 40MEQ/L 1,000 ML IV SCH ×2 (10:50→15:59)
[2022-01-31] MEDS ORDERED: NALOXONE HCL 0.4MG/ML VIAL IV PRN (11:15)
[2022-01-31] MEDS: KCL 20MEQ/100ML X 2 FOR TOTAL KCL 40MEQ/200ML IV SCH ×2 (12:00→19:27)
[2022-01-31] MEDS ORDERED: FOLIC ACID 1 MG, THIAMINE HCL 100 MG, MVI, ADULT NO.1 10 ML in DEXT 5%/LACTATED RINGERS... IV ONE ×4 (12:00)
[2022-01-31 12:36] LABS: BG BASE EXCESS -1.1 mmol/L (-2.0-2.0); BG CARBOXYHEMOGLOBIN 2.3 % (0.5-1.5); BG DEOXYHEMOGLOBIN 5.3 % (0.0-5.0); BG FRACTION INSPIRED OXYGEN 21; BG OXYGEN SATURATION 94.6 % (92.0-98.5); BG OXYHEMOGLOBIN 92.4 % (94.0-97.0); BG PCO2 31.8 mmHg (35.0-45.0); BG PH 7.458 (7.350-7.450); BG PO2 71.1 mmHg (75.0-100.0); BG SAMPLE SITE LEFT RADIAL; BG TOTAL HEMOGLOBIN 12.2 g/dL (12.0-18.0); BG VENT MODE ROOM AIR
[2022-01-31] MEDS ORDERED: FENTANYL CITRATE/PF 50MCG/ML 2ML VIAL ONE (12:58)
[2022-01-31] MEDS: VANCOMYCIN 750MG PREMIX 150 ML IV SCH ×2 (13:09→22:17)
[2022-01-31 13:19] LABS: HEPATITIS B SURFACE ANTIGEN NEGATIVE
[2022-01-31] MEDS ORDERED: FENTANYL CITRATE/PF 50MCG/ML 2ML VIAL IV ONE (14:00)
[2022-01-31] MEDS ORDERED: AMIKACIN SULFATE 500 MG in SODIUM CHLORIDE 0.9% 100 ML IV NR (17:00)
[2022-01-31 17:56] LABS: PLATELET ESTIMATE NORMAL
[2022-01-31 18:12] LABS: PHOSPHORUS 2.6 mg/dL (2.5-4.9)
[2022-01-31] MEDS ORDERED: VANCOMYCIN 1GM PMX (XELLIA) 200 ML IV SCH (19:00)
[2022-02-01] VITALS (11 sets, daily range): BP systolic 119–147; BP diastolic 67–98
[2022-02-01] MEDS: DEXT 5%/0.45% NACL KCL 40MEQ/L 1,000 ML IV SCH ×4 (00:02→23:42)
[2022-02-01 06:12] LABS: BASOPHILS % 0.2 % (0.0-2.0); EOSINOPHILS % 0.2 % (0.0-5.0); HEMATOCRIT. 33.7 % (42.0-52.0); HEMOGLOBIN. 11.4 g/dL (14.0-18.0); LYMPHOCYTES % 8.2 % (20.0-50.0); MEAN CORPUSCULAR HEMOGLOBIN 31.4 pg (28.0-32.0); MEAN CORPUSCULAR VOLUME 92.8 fL (80.0-94.0); MEAN PLATELET VOLUME 9.4 fl (7.4-10.4); MONOCYTES % 7.5 % (2.0-8.0); NEUTROPHILS % 83.9 % (40.0-76.0); PLATELET 227 x1000/uL (130-400); RED BLOOD CELL COUNT 3.63 mill/uL (4.7-6.1); RED CELL DISTRIBUTION WIDTH 13.2 % (11.6-14.6)
[2022-02-01 06:24] LABS: INR 1.1; PROTHROMBIN TIME 11.3 sec (9.6-11.0)
[2022-02-01] MEDS: PIPERACILLIN/TAZOBACTAM 3.375 G in DEXTROSE 5% WATER 50 ML IV SCH ×5 (06:33→20:58)
[2022-02-01 06:47] LABS: CHLORIDE 106 mEq/L (98-107)
[2022-02-01 06:58] LABS: PHOSPHORUS 1.8 mg/dL (2.5-4.9)
[2022-02-01] MEDS: DOCUSATE SODIUM 250MG CAPSULE PO SCH (07:53)
[2022-02-01] MEDS: VANCOMYCIN 750MG PREMIX 150 ML IV SCH (08:07)
[2022-02-01] MEDS: ENOXAPARIN 40MG/0.4ML SYR SUBCUT SCH (08:08)
[2022-02-01] MEDS: PANTOPRAZOLE SODIUM 40 MG/VIAL IV SCH (08:08)
[2022-02-01] MEDS ORDERED: POTASSIUM CHLORIDE 20MEQ TABLET SR PO NR (09:15)
[2022-02-01 10:11] LABS: A/G RATIO 0.9 (0.7-1.7); ALBUMIN 2.2 g/dL (2.9-4.4); ALPHA-1-GLOBULIN 0.4 g/dL (0.0-0.4); ALPHA-2-GLOBULIN 0.8 g/dL (0.4-1.0); BETA GLOBULIN 0.7 g/dL (0.7-1.3); GAMMA GLOBULINS 0.6 g/dL (0.4-1.8); GLOBULIN TOTAL 2.5 g/dL (2.2-3.9); M-SPIKE Not Observed g/dL (Not Observed); TOTAL PROTEIN SERUM 4.7 g/dL (6.0-8.5)
[2022-02-01] MEDS ORDERED: SODIUM PHOS,M-BASIC-D-BASIC 20 MM in DEXT 5% WATER 243.3333 ML IV ONE (13:00)
[2022-02-01 13:04] LABS: CREATINE KINASE 56 IU/L (39-308)
[2022-02-01] MEDS: POTASSIUM-SODIUM PHOSPHATE POWDER PACKET PO SCH ×2 (13:13→17:00)
[2022-02-01] MEDS: LACTULOSE 20G/30ML UDC PO SCH ×2 (15:03→20:58)
[2022-02-01] MEDS: POTASSIUM CHLORIDE 20MEQ TABLET SR PO SCH (17:49)
[2022-02-01] MEDS: VANCOMYCIN 1G PREMIX 200 ML IV SCH (21:00)
[2022-02-02] VITALS (11 sets, daily range): BP systolic 123–160; BP diastolic 81–102
[2022-02-02] MEDS: PIPERACILLIN/TAZOBACTAM 3.375 G in DEXTROSE 5% WATER 50 ML IV SCH ×2 (05:52→14:15)
[2022-02-02] MEDS: LACTULOSE 20G/30ML UDC PO SCH ×3 (05:52→21:09)
[2022-02-02 06:40] LABS: CHLORIDE 110 mEq/L (98-107)
[2022-02-02 06:45] LABS: HEMATOCRIT. 34.4 % (42.0-52.0); HEMOGLOBIN. 11.6 g/dL (14.0-18.0); MEAN CORPUSCULAR HEMOGLOBIN 31.7 pg (28.0-32.0); MEAN CORPUSCULAR VOLUME 94.4 fL (80.0-94.0); MEAN PLATELET VOLUME 9.2 fl (7.4-10.4); PHOSPHORUS 3.3 mg/dL (2.5-4.9); PLATELET 282 x1000/uL (130-400); RED BLOOD CELL COUNT 3.65 mill/uL (4.7-6.1); RED CELL DISTRIBUTION WIDTH 13.6 % (11.6-14.6)
[2022-02-02] MEDS: PANTOPRAZOLE SODIUM 40 MG/VIAL IV SCH (08:48)
[2022-02-02] MEDS: DEXT 5%/0.45% NACL KCL 40MEQ/L 1,000 ML IV SCH ×3 (08:51→23:13)
[2022-02-02] MEDS: VANCOMYCIN 1G PREMIX 200 ML IV SCH (08:51)
[2022-02-02] MEDS: POTASSIUM-SODIUM PHOSPHATE POWDER PACKET PO SCH ×2 (08:52→17:31)
[2022-02-02] MEDS: DOCUSATE SODIUM 250MG CAPSULE PO SCH (08:52)
[2022-02-02] MEDS: POTASSIUM CHLORIDE 20MEQ TABLET SR PO SCH ×2 (08:52→17:31)
[2022-02-02] MEDS: ENOXAPARIN 40MG/0.4ML SYR SUBCUT SCH (08:52)
[2022-02-02 11:47] LABS: PLATELET ESTIMATE NORMAL
[2022-02-02] MEDS ORDERED: CEFTRIAXONE 2 G PREMIX 50 ML IV SCH (14:30)
[2022-02-02] MEDS: CEFTRIAXONE 2 G in DEXTROSE 5% WATER 50 ML IV SCH (17:30)
[2022-02-02] MEDS: METRONIDAZOLE 500MG TABLET PO SCH ×2 (17:42→21:09)
[2022-02-03] VITALS (20 sets, daily range): BP systolic 109–156; BP diastolic 69–102
[2022-02-03 05:11] LABS: CHLORIDE 109 mEq/L (98-107)
[2022-02-03] MEDS: METRONIDAZOLE 500MG TABLET PO SCH ×3 (05:22→21:22)
[2022-02-03] MEDS: LACTULOSE 20G/30ML UDC PO SCH (05:22)
[2022-02-03 06:39] LABS: BASOPHILS % 0.2 % (0.0-2.0); EOSINOPHILS % 0.3 % (0.0-5.0); HEMATOCRIT. 33.2 % (42.0-52.0); LYMPHOCYTES % 7.7 % (20.0-50.0); MEAN CORPUSCULAR HEMOGLOBIN 31.4 pg (28.0-32.0); MEAN CORPUSCULAR VOLUME 94.9 fL (80.0-94.0); MEAN PLATELET VOLUME 9.2 fl (7.4-10.4); MONOCYTES % 7.1 % (2.0-8.0); NEUTROPHILS % 84.7 % (40.0-76.0); PLATELET 359 x1000/uL (130-400); RED CELL DISTRIBUTION WIDTH 13.5 % (11.6-14.6)
[2022-02-03] MEDS: ENOXAPARIN 40MG/0.4ML SYR SUBCUT SCH (09:09)
[2022-02-03] MEDS: POTASSIUM-SODIUM PHOSPHATE POWDER PACKET PO SCH ×2 (09:09→16:23)
[2022-02-03] MEDS: PANTOPRAZOLE SODIUM 40 MG/VIAL IV SCH (09:10)
[2022-02-03] MEDS: POTASSIUM CHLORIDE 20MEQ TABLET SR PO SCH ×2 (09:10→16:23)
[2022-02-03] MEDS: DOCUSATE SODIUM 250MG CAPSULE PO SCH (09:10)
[2022-02-03] MEDS: CEFTRIAXONE 2 G in DEXTROSE 5% WATER 50 ML IV SCH (16:23)
[2022-02-03] MEDS: DEXT 5%/0.45% NACL KCL 40MEQ/L 1,000 ML IV SCH (16:24)
[2022-02-03] MEDS: ACETAMINOPHEN 325MG TABLET PO PRN (23:30)
[2022-02-04] VITALS (18 sets, daily range): BP systolic 102–149; BP diastolic 72–89
[2022-02-04] MEDS: DEXT 5%/0.45% NACL KCL 40MEQ/L 1,000 ML IV SCH ×2 (02:14→08:13)
[2022-02-04 05:27] LABS: BASOPHILS % 0.2 % (0.0-2.0); EOSINOPHILS % 0.6 % (0.0-5.0); HEMATOCRIT. 34.5 % (42.0-52.0); HEMOGLOBIN. 11.4 g/dL (14.0-18.0); LYMPHOCYTES % 7.6 % (20.0-50.0); MEAN CORPUSCULAR HEMOGLOBIN 31.4 pg (28.0-32.0); MEAN CORPUSCULAR VOLUME 95.3 fL (80.0-94.0); MEAN PLATELET VOLUME 8.6 fl (7.4-10.4); MONOCYTES % 7.4 % (2.0-8.0); NEUTROPHILS % 84.2 % (40.0-76.0); PLATELET 475 x1000/uL (130-400); RED BLOOD CELL COUNT 3.62 mill/uL (4.7-6.1); RED CELL DISTRIBUTION WIDTH 13.5 % (11.6-14.6)
[2022-02-04 05:39] LABS: CHLORIDE 106 mEq/L (98-107)
[2022-02-04] MEDS: METRONIDAZOLE 500MG TABLET PO SCH ×3 (05:46→21:51)
[2022-02-04] MEDS: PANTOPRAZOLE SODIUM 40 MG/VIAL IV SCH (08:13)
[2022-02-04] MEDS: POTASSIUM CHLORIDE 20MEQ TABLET SR PO SCH (08:13)
[2022-02-04] MEDS: DOCUSATE SODIUM 250MG CAPSULE PO SCH (08:13)
[2022-02-04] MEDS: ENOXAPARIN 40MG/0.4ML SYR SUBCUT SCH (08:14)
[2022-02-04] MEDS: POTASSIUM-SODIUM PHOSPHATE POWDER PACKET PO SCH (08:14)
[2022-02-04] MEDS: DEXT 5%/0.9% NACL 1,000 ML IV SCH (14:47)
[2022-02-04] MEDS: CEFTRIAXONE 2 G in DEXTROSE 5% WATER 50 ML IV SCH (14:50)
[2022-02-05] VITALS (10 sets, daily range): BP systolic 102–129; BP diastolic 56–84
[2022-02-05 06:22] LABS: BASOPHILS % 0.6 % (0.0-2.0); EOSINOPHILS % 0.7 % (0.0-5.0); HEMATOCRIT. 33.7 % (42.0-52.0); LYMPHOCYTES % 9.9 % (20.0-50.0); MEAN CORPUSCULAR HEMOGLOBIN 31.8 pg (28.0-32.0); MEAN CORPUSCULAR VOLUME 97.5 fL (80.0-94.0); MEAN PLATELET VOLUME 9.7 fl (7.4-10.4); MONOCYTES % 6.7 % (2.0-8.0); NEUTROPHILS % 82.1 % (40.0-76.0); PLATELET 165 x1000/uL (130-400); RED BLOOD CELL COUNT 3.46 mill/uL (4.7-6.1); RED CELL DISTRIBUTION WIDTH 13.8 % (11.6-14.6)
[2022-02-05] MEDS: METRONIDAZOLE 500MG TABLET PO SCH ×3 (06:49→21:49)
[2022-02-05] MEDS: DEXT 5%/0.9% NACL 1,000 ML IV SCH (06:49)
[2022-02-05] MEDS: DOCUSATE SODIUM 250MG CAPSULE PO SCH (09:55)
[2022-02-05] MEDS: PANTOPRAZOLE SODIUM 40 MG/VIAL IV SCH (09:55)
[2022-02-05] MEDS: ENOXAPARIN 40MG/0.4ML SYR SUBCUT SCH (09:56)
[2022-02-05 10:39] LABS: CHLORIDE 107 mEq/L (98-107)
[2022-02-05] MEDS ORDERED: IOHEXOL-300 50 ML BOTTLE IV ONE (14:28)
[2022-02-05] MEDS: CEFTRIAXONE 2 G in DEXTROSE 5% WATER 50 ML IV SCH (15:45)
[2022-02-06] VITALS (20 sets, daily range): BP systolic 107–130; BP diastolic 66–94
[2022-02-06] MEDS: METRONIDAZOLE 500MG TABLET PO SCH ×3 (05:48→22:01)
[2022-02-06 06:23] LABS: HEMATOCRIT. 33.6 % (42.0-52.0); HEMOGLOBIN. 11.1 g/dL (14.0-18.0); MEAN CORPUSCULAR HEMOGLOBIN 31.6 pg (28.0-32.0); MEAN CORPUSCULAR VOLUME 95.5 fL (80.0-94.0); MEAN PLATELET VOLUME 7.9 fl (7.4-10.4); PLATELET 729 x1000/uL (130-400); RED BLOOD CELL COUNT 3.51 mill/uL (4.7-6.1); RED CELL DISTRIBUTION WIDTH 13.5 % (11.6-14.6)
[2022-02-06 06:58] LABS: CHLORIDE 106 mEq/L (98-107)
[2022-02-06] MEDS: PANTOPRAZOLE SODIUM 40 MG/VIAL IV SCH (08:29)
[2022-02-06] MEDS: DOCUSATE SODIUM 250MG CAPSULE PO SCH (08:30)
[2022-02-06] MEDS: ENOXAPARIN 40MG/0.4ML SYR SUBCUT SCH (08:30)
[2022-02-06 09:55] LABS: BG BASE EXCESS -2.7 mmol/L (-2.0-2.0); BG CARBOXYHEMOGLOBIN 0.3 % (0.5-1.5); BG DEOXYHEMOGLOBIN 5.3 % (0.0-5.0); BG HCO3 ACT 20.5 mmol/L (22.0-26.0); BG METHEMOGLOBIN 0.8 % (0.0-1.5); BG OXYGEN SATURATION 94.6 % (92.0-98.5); BG OXYHEMOGLOBIN 93.6 % (94.0-97.0); BG PCO2 30.8 mmHg (35.0-45.0); BG PH 7.441 (7.350-7.450); BG SAMPLE SITE RIGHT RADIAL; BG TOTAL HEMOGLOBIN 12.7 g/dL (12.0-18.0); BG VENT MODE ROOM AIR
[2022-02-06] MEDS: SODIUM CHLORIDE 0.45% 1,000 ML IV SCH (11:32)
[2022-02-06 13:26] LABS: PLATELET ESTIMATE INCREASED
[2022-02-06] MEDS: CEFTRIAXONE 2 G in DEXTROSE 5% WATER 50 ML IV SCH (16:08)
[2022-02-07] VITALS (12 sets, daily range): BP systolic 110–147; BP diastolic 68–87
[2022-02-07 04:09] LABS: BARBITURATE SCREEN Negative ug/mL (Cutoff:0.1); BENZODIAZEPINE SCREEN Negative ng/mL (Cutoff:20); OPIATES SCREEN Negative ng/mL (Cutoff:5); PHENCYCLIDINE SCREEN Negative ng/mL (Cutoff:8)
[2022-02-07] MEDS: SODIUM CHLORIDE 0.45% 1,000 ML IV SCH ×2 (04:18→19:05)
[2022-02-07 05:39] LABS: CHLORIDE 105 mEq/L (98-107)
[2022-02-07] MEDS: METRONIDAZOLE 500MG TABLET PO SCH ×2 (06:04→14:24)
[2022-02-07 07:16] LABS: HEMATOCRIT. 34.8 % (42.0-52.0); HEMOGLOBIN. 11.6 g/dL (14.0-18.0); MEAN CORPUSCULAR HEMOGLOBIN 31.8 pg (28.0-32.0); MEAN CORPUSCULAR VOLUME 95.3 fL (80.0-94.0); MEAN PLATELET VOLUME 7.8 fl (7.4-10.4); PLATELET 805 x1000/uL (130-400); RED BLOOD CELL COUNT 3.65 mill/uL (4.7-6.1)
[2022-02-07] MEDS: DOCUSATE SODIUM 250MG CAPSULE PO SCH (08:59)
[2022-02-07] MEDS: ENOXAPARIN 40MG/0.4ML SYR SUBCUT SCH (09:00)
[2022-02-07] MEDS: PANTOPRAZOLE SODIUM 40 MG/VIAL IV SCH (09:00)
[2022-02-07 09:03] LABS: PLATELET ESTIMATE INCREASED
[2022-02-07] MEDS ORDERED: VANCOMYCIN 1500MG in DEXTROSE 5% WATER 250ML IV SCH (11:00)
[2022-02-07] MEDS: CEFTRIAXONE 2 G in DEXTROSE 5% WATER 50 ML IV SCH (16:06)
[2022-02-07] MEDS ORDERED: VANCOMYCIN 750MG PMX (XELLIA) 150 ML IV SCH (22:00)
[2022-02-07] MEDS: VANCOMYCIN 1GM PMX (XELLIA) 200 ML IV SCH (22:04)
[2022-02-08] VITALS (16 sets, daily range): BP systolic 111–157; BP diastolic 67–124
[2022-02-08] MEDS: VANCOMYCIN 1GM PMX (XELLIA) 200 ML IV SCH ×2 (09:28→21:09)
[2022-02-08] MEDS: DOCUSATE SODIUM 250MG CAPSULE PO SCH (09:28)
[2022-02-08] MEDS: ENOXAPARIN 40MG/0.4ML SYR SUBCUT SCH (09:28)
[2022-02-08] MEDS: PANTOPRAZOLE SODIUM 40 MG/VIAL IV SCH (09:28)
[2022-02-08 13:05] LABS: BASOPHILS % 0.5 % (0.0-2.0); EOSINOPHILS % 0.8 % (0.0-5.0); HEMATOCRIT. 34.6 % (42.0-52.0); HEMOGLOBIN. 11.7 g/dL (14.0-18.0); LYMPHOCYTES % 19.7 % (20.0-50.0); MEAN CORPUSCULAR VOLUME 95.1 fL (80.0-94.0); MEAN PLATELET VOLUME 7.3 fl (7.4-10.4); MONOCYTES % 6.7 % (2.0-8.0); NEUTROPHILS % 72.3 % (40.0-76.0); PLATELET 870 x1000/uL (130-400); RED BLOOD CELL COUNT 3.64 mill/uL (4.7-6.1); RED CELL DISTRIBUTION WIDTH 13.7 % (11.6-14.6)
[2022-02-08] MEDS: SODIUM CHLORIDE 0.45% 1,000 ML IV SCH ×2 (13:42→21:10)
[2022-02-08] MEDS: CEFTRIAXONE 2 G in DEXTROSE 5% WATER 50 ML IV SCH (16:23)
[2022-02-09] VITALS (14 sets, daily range): BP systolic 105–137; BP diastolic 58–84
[2022-02-09 05:38] LABS: BASOPHILS % 0.6 % (0.0-2.0); HEMATOCRIT. 34.9 % (42.0-52.0); HEMOGLOBIN. 11.6 g/dL (14.0-18.0); LYMPHOCYTES % 19.9 % (20.0-50.0); MEAN CORPUSCULAR HEMOGLOBIN 31.7 pg (28.0-32.0); MEAN CORPUSCULAR VOLUME 95.4 fL (80.0-94.0); MEAN PLATELET VOLUME 7.1 fl (7.4-10.4); MONOCYTES % 6.8 % (2.0-8.0); NEUTROPHILS % 71.7 % (40.0-76.0); PLATELET 885 x1000/uL (130-400); RED BLOOD CELL COUNT 3.66 mill/uL (4.7-6.1); RED CELL DISTRIBUTION WIDTH 13.5 % (11.6-14.6)
[2022-02-09 06:18] LABS: CHLORIDE 106 mEq/L (98-107)
[2022-02-09] MEDS: VANCOMYCIN 1GM PMX (XELLIA) 200 ML IV SCH ×2 (09:22→21:46)
[2022-02-09] MEDS: PANTOPRAZOLE SODIUM 40 MG/VIAL IV SCH (09:23)
[2022-02-09] MEDS: ENOXAPARIN 40MG/0.4ML SYR SUBCUT SCH (09:23)
[2022-02-09] MEDS: DOCUSATE SODIUM 250MG CAPSULE PO SCH (09:23)
[2022-02-09] MEDS ORDERED: ONDA4TAB11 PO (09:47)
[2022-02-09] MEDS ORDERED: PANT40TA51 PO (09:47)
[2022-02-09] MEDS ORDERED: DOCU250C14 PO (09:47)
[2022-02-09] MEDS ORDERED: METRONIDAZOLE 500 MG PREMIX 100 ML IV SCH (11:00)
[2022-02-09] MEDS: CEFTRIAXONE 2 G in DEXTROSE 5% WATER 50 ML IV SCH (15:06)
[2022-02-09] MEDS: METRONIDAZOLE 500MG TABLET PO SCH ×2 (15:06→21:47)
[2022-02-09] MEDS: SODIUM CHLORIDE 0.45% 1,000 ML IV SCH (21:47)
[2022-02-10] VITALS (11 sets, daily range): BP systolic 107–133; BP diastolic 59–88
[2022-02-10] MEDS: METRONIDAZOLE 500MG TABLET PO SCH ×3 (06:25→21:20)
[2022-02-10] MEDS: PANTOPRAZOLE SODIUM 40 MG/VIAL IV SCH (09:13)
[2022-02-10] MEDS: VANCOMYCIN 1GM PMX (XELLIA) 200 ML IV SCH ×2 (09:14→21:20)
[2022-02-10] MEDS: DOCUSATE SODIUM 250MG CAPSULE PO SCH (09:14)
[2022-02-10] MEDS: ENOXAPARIN 40MG/0.4ML SYR SUBCUT SCH (09:14)
[2022-02-10] MEDS: CEFTRIAXONE 2 G in DEXTROSE 5% WATER 50 ML IV SCH (14:16)
[2022-02-11] VITALS (12 sets, daily range): BP systolic 109–137; BP diastolic 66–82
[2022-02-11 05:40] LABS: BASOPHILS % 0.7 % (0.0-2.0); EOSINOPHILS % 1.2 % (0.0-5.0); HEMATOCRIT. 34.3 % (42.0-52.0); HEMOGLOBIN. 11.7 g/dL (14.0-18.0); LYMPHOCYTES % 20.8 % (20.0-50.0); MEAN CORPUSCULAR HEMOGLOBIN 32.1 pg (28.0-32.0); MEAN CORPUSCULAR VOLUME 94.1 fL (80.0-94.0); MEAN PLATELET VOLUME 7.1 fl (7.4-10.4); MONOCYTES % 6.4 % (2.0-8.0); NEUTROPHILS % 70.9 % (40.0-76.0); PLATELET 811 x1000/uL (130-400); RED BLOOD CELL COUNT 3.64 mill/uL (4.7-6.1); RED CELL DISTRIBUTION WIDTH 13.8 % (11.6-14.6)
[2022-02-11 05:57] LABS: CHLORIDE 108 mEq/L (98-107)
[2022-02-11] MEDS: METRONIDAZOLE 500MG TABLET PO SCH ×3 (06:13→21:36)
[2022-02-11] MEDS: DOCUSATE SODIUM 250MG CAPSULE PO SCH (08:55)
[2022-02-11] MEDS: ENOXAPARIN 40MG/0.4ML SYR SUBCUT SCH (08:55)
[2022-02-11] MEDS: VANCOMYCIN 1GM PMX (XELLIA) 200 ML IV SCH (08:55)
[2022-02-11] MEDS: PANTOPRAZOLE SODIUM 40 MG/VIAL IV SCH (08:55)
[2022-02-11] MEDS: CEFTRIAXONE 2 G in DEXTROSE 5% WATER 50 ML IV SCH (15:15)
[2022-02-12] VITALS (12 sets, daily range): BP systolic 102–145; BP diastolic 61–87
[2022-02-12] MEDS: METRONIDAZOLE 500MG TABLET PO SCH ×3 (06:38→21:21)
[2022-02-12 07:53] LABS: EOSINOPHILS % 1.2 % (0.0-5.0); HEMOGLOBIN. 11.5 g/dL (14.0-18.0); LYMPHOCYTES % 21.3 % (20.0-50.0); MEAN CORPUSCULAR HEMOGLOBIN 32.7 pg (28.0-32.0); MEAN CORPUSCULAR VOLUME 93.4 fL (80.0-94.0); MEAN PLATELET VOLUME 6.8 fl (7.4-10.4); MONOCYTES % 7.2 % (2.0-8.0); NEUTROPHILS % 69.3 % (40.0-76.0); PLATELET 806 x1000/uL (130-400); RED BLOOD CELL COUNT 3.53 mill/uL (4.7-6.1); RED CELL DISTRIBUTION WIDTH 13.5 % (11.6-14.6)
[2022-02-12] MEDS: PANTOPRAZOLE SODIUM 40 MG/VIAL IV SCH (08:34)
[2022-02-12] MEDS: ENOXAPARIN 40MG/0.4ML SYR SUBCUT SCH (08:35)
[2022-02-12] MEDS: DOCUSATE SODIUM 250MG CAPSULE PO SCH (08:35)
[2022-02-12 08:53] LABS: CHLORIDE 109 mEq/L (98-107)
[2022-02-12] MEDS: CEFTRIAXONE 2 G in DEXTROSE 5% WATER 50 ML IV SCH (14:45)
[2022-02-13] VITALS: BP 122/78
[2022-02-13 02:00] VITALS: BP 116/73
[2022-02-13 04:00] VITALS: BP 121/72
[2022-02-13] MEDS: METRONIDAZOLE 500MG TABLET PO SCH ×3 (05:37→21:03)
[2022-02-13 08:00] VITALS: BP 127/82
[2022-02-13] MEDS: DOCUSATE SODIUM 250MG CAPSULE PO SCH (09:00)
[2022-02-13] MEDS: PANTOPRAZOLE SODIUM 40 MG/VIAL IV SCH (10:06)
[2022-02-13] MEDS: ENOXAPARIN 40MG/0.4ML SYR SUBCUT SCH (10:06)
[2022-02-13 12:00] VITALS: BP 111/72
[2022-02-13] MEDS: CEFTRIAXONE 2 G in DEXTROSE 5% WATER 50 ML IV SCH (14:12)
[2022-02-13 20:00] VITALS: BP 105/73
[2022-02-14] VITALS: BP 110/75
[2022-02-14 04:00] VITALS: BP 118/79
[2022-02-14] MEDS: METRONIDAZOLE 500MG TABLET PO SCH ×2 (05:45→14:57)
[2022-02-14 06:29] LABS: EOSINOPHILS % 2.1 % (0.0-5.0); HEMATOCRIT. 35.2 % (42.0-52.0); HEMOGLOBIN. 12.1 g/dL (14.0-18.0); LYMPHOCYTES % 29.9 % (20.0-50.0); MEAN CORPUSCULAR HEMOGLOBIN 32.1 pg (28.0-32.0); MEAN CORPUSCULAR VOLUME 92.9 fL (80.0-94.0); MEAN PLATELET VOLUME 6.7 fl (7.4-10.4); MONOCYTES % 8.3 % (2.0-8.0); NEUTROPHILS % 58.7 % (40.0-76.0); PLATELET 695 x1000/uL (130-400); RED BLOOD CELL COUNT 3.78 mill/uL (4.7-6.1); RED CELL DISTRIBUTION WIDTH 13.7 % (11.6-14.6)
[2022-02-14 07:03] LABS: CHLORIDE 108 mEq/L (98-107)
[2022-02-14 08:00] VITALS: BP 130/87
[2022-02-14] MEDS: PANTOPRAZOLE SODIUM 40 MG/VIAL IV SCH (10:38)
[2022-02-14] MEDS: DOCUSATE SODIUM 250MG CAPSULE PO SCH (10:38)
[2022-02-14] MEDS: ENOXAPARIN 40MG/0.4ML SYR SUBCUT SCH (10:38)
[2022-02-14 12:00] VITALS: BP 121/81
[2022-02-14] MEDS: CEFTRIAXONE 2 G in DEXTROSE 5% WATER 50 ML IV SCH (14:57)
[2022-02-14 16:00] VITALS: BP 112/79
== END 2022-02-14 17:44 | disposition home health service (06) | DRG 871 ==
LOC: ER 14:33 → 6WST 18:22 → EDBEDREQ 18:26 → EDBEDREQSVC 18:26 → ENRESERV 20:13 → 5EST 01-31 16:36 → 3WST 02-04 10:40 → 6EST 02-13 05:34
PROVIDERS: ADMIT Internal Medicine Geriatric Medicine; ATTEND Internal Medicine Geriatric Medicine
PROC: 0F9130Z Drainage of Right Lobe Liver with Drainage Device, Percutaneous Approach (ICD-10-PCS; principal; 2022-01-31)
DX: A41.50 Gram-negative sepsis, unspecified (principal); E43 Unspecified severe protein-calorie malnutrition; J96.00 Acute respiratory failure, unspecified whether with hypoxia or hypercapnia; K75.0 Abscess of liver; J18.9 Pneumonia, unspecified organism; N17.9 Acute kidney failure, unspecified; N39.0 Urinary tract infection, site not specified; E87.20 Acidosis, unspecified; J98.11 Atelectasis; K80.00 Calculus of gallbladder with acute cholecystitis without obstruction; R65.20 Severe sepsis without septic shock; Z20.822 Contact with and (suspected) exposure to COVID-19; E83.39 Other disorders of phosphorus metabolism; E87.6 Hypokalemia; K29.70 Gastritis, unspecified, without bleeding; N40.1 Benign prostatic hyperplasia with lower urinary tract symptoms; R74.01 Elevation of levels of liver transaminase levels; E80.6 Other disorders of bilirubin metabolism; R73.9 Hyperglycemia, unspecified; I12.9 Hypertensive chronic kidney disease with stage 1 through stage 4 chronic kidney disease, or unspecified chronic kidney disease; N18.30 Chronic kidney disease, stage 3 unspecified; M19.90 Unspecified osteoarthritis, unspecified site; D75.839 Thrombocytosis, unspecified; R91.8 Other nonspecific abnormal finding of lung field; D75.838 Other thrombocytosis; F10.10 Alcohol abuse, uncomplicated; Z68.27 Body mass index [BMI] 27.0-27.9, adult; Z79.899 Other long term (current) drug therapy; Z90.49 Acquired absence of other specified parts of digestive tract
CPT/HCPCS: 10030; 36415; 36600; 71045; 71270; 74176; 76700; 80048; 80053; 80076; 80202; 80305; 80307; 80320; 81003; 82105; 82140; 82248; 82375; 82378; 82550; 82805; 83605; 83735; 84100; 84145; 84153; 84155; 84165; 85025; 86301; 86703; 86705; 86709; 86803; 87075; 87076; 87340; 87426; 93005; 93306; 93970; 99291; C1729; C9113; C9803; J0278; J0696; J1650; J2543; J3010; J3370; J3411; J3480; J3490; J7030; J7050; J7060; J7121; Q9967; G0103; G0480

== ENCOUNTER → 2022-02-27 | Outpatient (CLI) | payer BC ==
[~2022-02-27] MED LIST changes: +DOCU250C14 PO; +ONDA4TAB11 PO
[2022-02-27 15:30] LABS: HEMATOCRIT. 41.5 % (42.0-52.0); HEMOGLOBIN. 13.9 g/dL (14.0-18.0); MEAN CORPUSCULAR HEMOGLOBIN 31.7 pg (28.0-32.0); MEAN CORPUSCULAR VOLUME 94.4 fL (80.0-94.0); MEAN PLATELET VOLUME 6.9 fl (7.4-10.4); PLATELET 353 x1000/uL (130-400); RED BLOOD CELL COUNT 4.39 mill/uL (4.7-6.1); RED CELL DISTRIBUTION WIDTH 14.6 % (11.6-14.6)
[2022-02-27 16:10] LABS: CHLORIDE 104 mEq/L (98-107)
[2022-02-27 20:12] LABS: PLATELET ESTIMATE NORMAL
== END | disposition home or self-care (01) ==
LOC: LAB 14:48
PROVIDERS: ATTEND Internal Medicine Geriatric Medicine
DX: I10 Essential (primary) hypertension (principal)
CPT/HCPCS: 36415; 80053; 85025

== ENCOUNTER → 2022-03-23 | Outpatient (CLI) | payer BC ==
[~2022-03-23] MED LIST changes: -AMOX-424 MT; -DOXY150T9 MT; -LACT10SO7 PO
[2022-03-23 09:54] LABS: BASOPHILS % 0.5 % (0.0-2.0); EOSINOPHILS % 4.9 % (0.0-5.0); HEMATOCRIT. 49.6 % (42.0-52.0); HEMOGLOBIN. 16.9 g/dL (14.0-18.0); LYMPHOCYTES % 40.8 % (20.0-50.0); MEAN CORPUSCULAR HEMOGLOBIN 31.5 pg (28.0-32.0); MEAN CORPUSCULAR VOLUME 92.7 fL (80.0-94.0); MEAN PLATELET VOLUME 7.1 fl (7.4-10.4); MONOCYTES % 7.3 % (2.0-8.0); NEUTROPHILS % 46.5 % (40.0-76.0); PLATELET 343 x1000/uL (130-400); RED BLOOD CELL COUNT 5.35 mill/uL (4.7-6.1); RED CELL DISTRIBUTION WIDTH 14.2 % (11.6-14.6)
[2022-03-23 10:09] LABS: CHLORIDE 106 mEq/L (98-107)
[2022-03-23 10:20] LABS: HDL CHOLESTEROL 40 mg/dL (40-59); LDL CHOLESTEROL 89 mg/dL (5-100)
== END | disposition home or self-care (01) ==
LOC: CT 08:23
PROVIDERS: ATTEND Internal Medicine Geriatric Medicine
DX: K76.89 Other specified diseases of liver (principal); K57.30 Diverticulosis of large intestine without perforation or abscess without bleeding; K56.41 Fecal impaction; K75.0 Abscess of liver
CPT/HCPCS: 36415; 74176; 80053; 80061; 83036; 85025

== ENCOUNTER → 2022-03-30 | Outpatient (CLI) | payer BC ==
[2022-03-30 16:56] LABS: BASOPHILS % 0.4 % (0.0-2.0); EOSINOPHILS % 3.8 % (0.0-5.0); HEMATOCRIT. 47.2 % (42.0-52.0); HEMOGLOBIN. 16.2 g/dL (14.0-18.0); LYMPHOCYTES % 32.6 % (20.0-50.0); MEAN CORPUSCULAR HEMOGLOBIN 31.6 pg (28.0-32.0); MEAN CORPUSCULAR VOLUME 92.2 fL (80.0-94.0); MEAN PLATELET VOLUME 6.6 fl (7.4-10.4); MONOCYTES % 7.8 % (2.0-8.0); NEUTROPHILS % 55.4 % (40.0-76.0); PLATELET 315 x1000/uL (130-400); RED BLOOD CELL COUNT 5.11 mill/uL (4.7-6.1); RED CELL DISTRIBUTION WIDTH 13.8 % (11.6-14.6)
== END | disposition home or self-care (01) ==
LOC: LAB 16:21
PROVIDERS: ATTEND Internal Medicine Geriatric Medicine
DX: Z01.812 Encounter for preprocedural laboratory examination (principal)
CPT/HCPCS: 36415; 80076; 85025

== ENCOUNTER → 2022-04-02 | Outpatient (CLI) | payer BC ==
[2022-04-02 10:35] LABS: CLARITY URINE CLEAR (CLEAR); COLOR URINE YELLOW (YELLOW); KETONES URINE TRACE (NEGATIVE); LEUKOCYTE ESTERASE URINE NEGATIVE (NEGATIVE); NITRITE URINE NEGATIVE (NEGATIVE); OCCULT BLOOD URINE NEGATIVE (NEGATIVE); PH URINE 5.5 (4.5-8.0); PROTEIN URINE 1+ (NEGATIVE); UROBILINOGEN URINE 0.2 E.U./dL (0.2-1.0)
== END | disposition home or self-care (01) ==
LOC: LAB 10:04
PROVIDERS: ATTEND Internal Medicine Geriatric Medicine
DX: N39.0 Urinary tract infection, site not specified (principal)
CPT/HCPCS: 81003

== ENCOUNTER → 2022-04-03 | Outpatient (CLI) | payer BC | END | disposition home or self-care (01) | LOC: MRI 09:37 | PROVIDERS: ATTEND Internal Medicine Geriatric Medicine | DX: K75.0 Abscess of liver (principal); K76.89 Other specified diseases of liver; N32.89 Other specified disorders of bladder | CPT/HCPCS: 74181 ==

== ENCOUNTER → 2022-04-10 | Day surgery (SDC) | payer BC ==
[~2022-04-10] VITALS: Ht 165.1 cm; Wt 76.2 kg
[~2022-04-10] MED LIST changes: +BUPIVACAINE HCL/PF 0.5% (5MG/ML) 10ML ONE; +FENTANYL CITRATE/PF 50MCG/ML 2ML VIAL ONE; +LACTATED RINGERS 1,000 ML IV SCH; +MIDAZOLAM HCL 2 MG/2 ML VIAL ONE; +PROPOFOL 200MG/20ML VIAL IV ONE; +ROCURONIUM BROMIDE 10MG/ML VIAL 5ML IV ONE; +SKIN ADHESIVE 0.7 GM EA TOP ONE
== END | disposition home or self-care (01) ==
LOC: OR 06:12
PROVIDERS: ATTEND Surgery
DX: K81.0 Acute cholecystitis (principal); Z53.8 Procedure and treatment not carried out for other reasons; I10 Essential (primary) hypertension; Z79.899 Other long term (current) drug therapy; Z20.822 Contact with and (suspected) exposure to COVID-19
CPT/HCPCS: 87426; C9803; J2250; J2704; J3010; J3490

== ENCOUNTER 2022-04-24 07:15 | Inpatient (IN) | payer BC ==
[~2022-04-24] VITALS: Ht 165.1 cm; Wt 66.2 kg
[~2022-04-24 07:15] MED LIST changes: -BUPIVACAINE HCL/PF 0.5% (5MG/ML) 10ML ONE; -FENTANYL CITRATE/PF 50MCG/ML 2ML VIAL ONE; -LACTATED RINGERS 1,000 ML IV SCH; -MIDAZOLAM HCL 2 MG/2 ML VIAL ONE; -PROPOFOL 200MG/20ML VIAL IV ONE; -ROCURONIUM BROMIDE 10MG/ML VIAL 5ML IV ONE; -SKIN ADHESIVE 0.7 GM EA TOP ONE
[2022-04-24] MEDS ORDERED: PROPOFOL 200MG/20ML VIAL IV ONE (08:58)
[2022-04-24] MEDS ORDERED: LIDOCAINE HCL 1% 10 MG/ML 10ML VIAL ONE (08:59)
[2022-04-24] MEDS ORDERED: MIDAZOLAM HCL 2 MG/2 ML VIAL ONE (08:59)
[2022-04-24] MEDS ORDERED: FENTANYL CITRATE/PF 50MCG/ML 2ML VIAL ONE ×2 (09:00→10:09)
[2022-04-24] MEDS ORDERED: ROCURONIUM BROMIDE 10MG/ML VIAL 5ML IV ONE ×2 (09:06→10:19)
[2022-04-24] MEDS ORDERED: ONDANSETRON HCL 4MG/2ML INJ ONE (09:33)
[2022-04-24] MEDS ORDERED: DEXAMETHASONE 4MG/ML 1ML VIAL ONE (09:33)
[2022-04-24] MEDS ORDERED: GLYCOPYRROLATE 0.2 MG/ML 2ML VIAL ONE (09:34)
[2022-04-24] MEDS ORDERED: LIDOCAINE HCL 1% 20ML VIAL (Pyxis) INJ ONE (09:44)
[2022-04-24] MEDS ORDERED: CEFAZOLIN SODIUM 1000MG/VIAL ONE (09:44)
[2022-04-24] MEDS: LACTATED RINGERS 1,000 ML IV SCH ×2 (09:58→22:20)
[2022-04-24] MEDS ORDERED: NEOSTIGMINE METHYLSULFATE 1MG/ML 10 ML VIAL ONE (10:10)
[2022-04-24] MEDS ORDERED: DIPHENHYDRAMINE 50MG/ML VIAL ONE (10:57)
[2022-04-24] MEDS ORDERED: BUPIVACAINE HCL/PF 0.5% (5MG/ML) 30ML ONE ×2 (12:54→14:35)
[2022-04-24] MEDS ORDERED: SKIN ADHESIVE 0.7 GM EA TOP ONE (12:55)
[2022-04-24] MEDS ORDERED: ALBUMIN HUMAN 5% 500 ML IV NR (14:30)
[2022-04-24] MEDS ORDERED: FENTANYL CITRATE/PF 50MCG/ML 2ML VIAL IV PRN ×2 (14:30→15:15)
[2022-04-24] MEDS ORDERED: HYDROMORPHONE HCL/PF 2MG/ML CPJ IV PRN ×2 (14:30→15:15)
[2022-04-24] MEDS ORDERED: BUPIVACAINE HCL 0.5% 125 ML in ON-Q PM012 DRUG DELIV DEVICE 1 EA IR STA (14:59)
[2022-04-24] MEDS ORDERED: ONDANSETRON HCL 4MG/2ML INJ IV PRN (15:45)
[2022-04-24] MEDS ORDERED: MORPHINE SULFATE 4 MG/ML CPJ (NOT FOR IM USE) IV PRN (15:45)
[2022-04-24] MEDS ORDERED: MORPHINE SULFATE 2 MG/ML CPJ (NOT FOR IM USE) IV PRN (15:45)
[2022-04-24] MEDS ORDERED: NALOXONE INJ IV PRN (16:00)
[2022-04-24] MEDS ORDERED: HYDROMORPHONE PCA 10MG/50ML IV PRN (16:00)
[2022-04-24] MEDS ORDERED: CEFAZOLIN 2000MG in DEXTROSE 5% WATER 100ML IV NR (17:00)
[2022-04-24 18:13] LABS: HEMOGLOBIN 13.8 g/dL (14.0-18.0)
[2022-04-24 18:25] LABS: CHLORIDE 106 mEq/L (98-107)
[2022-04-24 19:00] VITALS: BP 121/82
[2022-04-24 20:00] VITALS: BP 121/82
[2022-04-24] MEDS: DEXT 5%/0.45% NACL KCL 20MEQ/L 1,000 ML IV SCH (22:15)
[2022-04-25] VITALS: BP 137/87
[2022-04-25] MEDS: DEXT 5%/0.45% NACL KCL 20MEQ/L 1,000 ML IV SCH ×3 (01:47→21:46)
[2022-04-25 04:00] VITALS: BP 137/87
[2022-04-25] MEDS: CEFAZOLIN 2,000 MG in DEXT 5% WATER 100 ML IV SCH ×2 (05:15→12:51)
[2022-04-25 08:00] VITALS: BP 147/98
[2022-04-25] MEDS ORDERED: ENOXAPARIN 40MG/0.4ML SYR SUBCUT NR (09:45)
[2022-04-25 12:00] VITALS: BP 153/102
[2022-04-25 12:37] LABS: HEMATOCRIT. 37.9 % (42.0-52.0); HEMOGLOBIN. 13.2 g/dL (14.0-18.0); LYMPHOCYTES % 7.2 % (20.0-50.0); MEAN CORPUSCULAR HEMOGLOBIN 31.4 pg (28.0-32.0); MEAN CORPUSCULAR VOLUME 90.4 fL (80.0-94.0); MEAN PLATELET VOLUME 7.1 fl (7.4-10.4); MONOCYTES % 9.7 % (2.0-8.0); NEUTROPHILS % 83.1 % (40.0-76.0); PLATELET 322 x1000/uL (130-400); RED BLOOD CELL COUNT 4.19 mill/uL (4.7-6.1); RED CELL DISTRIBUTION WIDTH 13.4 % (11.6-14.6)
[2022-04-25 14:37] LABS: CHLORIDE 106 mEq/L (98-107)
[2022-04-25 16:00] VITALS: BP 135/92
[2022-04-25 18:31] LABS: CLARITY URINE CLEAR (CLEAR); COLOR URINE YELLOW (YELLOW); KETONES URINE TRACE (NEGATIVE); LEUKOCYTE ESTERASE URINE NEGATIVE (NEGATIVE); NITRITE URINE NEGATIVE (NEGATIVE); OCCULT BLOOD URINE TRACE (NEGATIVE); PH URINE 5.5 (4.5-8.0); PROTEIN URINE 1+ (NEGATIVE); SPECIFIC GRAVITY URINE 1.019 (1.005-1.030); UROBILINOGEN URINE 0.2 E.U./dL (0.2-1.0)
[2022-04-25] MEDS: PIPERACILLIN/TAZOBACTAM 3.375 G in DEXTROSE 5% WATER 50 ML IV SCH (19:48)
[2022-04-25 20:00] VITALS: BP 130/90
[2022-04-26] VITALS: BP 130/90
[2022-04-26 04:00] VITALS: BP_SYST 130; BP_SYST 157; BP_DIAS 101; BP_DIAS 90
[2022-04-26] MEDS: PIPERACILLIN/TAZOBACTAM 3.375 G in DEXTROSE 5% WATER 50 ML IV SCH ×3 (04:34→21:59)
[2022-04-26 08:00] VITALS: BP 159/102
[2022-04-26 08:16] LABS: BASOPHILS % 0.1 % (0.0-2.0); EOSINOPHILS % 0.1 % (0.0-5.0); HEMATOCRIT. 34.7 % (42.0-52.0); HEMOGLOBIN. 12.1 g/dL (14.0-18.0); LYMPHOCYTES % 9.5 % (20.0-50.0); MEAN CORPUSCULAR HEMOGLOBIN 31.4 pg (28.0-32.0); MEAN CORPUSCULAR VOLUME 90.4 fL (80.0-94.0); MEAN PLATELET VOLUME 6.9 fl (7.4-10.4); MONOCYTES % 8.4 % (2.0-8.0); NEUTROPHILS % 81.9 % (40.0-76.0); PLATELET 261 x1000/uL (130-400); RED BLOOD CELL COUNT 3.83 mill/uL (4.7-6.1); RED CELL DISTRIBUTION WIDTH 13.4 % (11.6-14.6)
[2022-04-26 08:33] LABS: CHLORIDE 108 mEq/L (98-107)
[2022-04-26 08:40] LABS: PHOSPHORUS 1.7 mg/dL (2.5-4.9)
[2022-04-26] MEDS: ENOXAPARIN 40MG/0.4ML SYR SUBCUT SCH (09:10)
[2022-04-26] MEDS: DEXT 5%/0.45% NACL KCL 20MEQ/L 1,000 ML IV SCH ×2 (09:11→17:45)
[2022-04-26] MEDS ORDERED: POTASSIUM PHOS,M-BASIC-D-BASIC 30 MMOL in DEXT 5% WATER 500 ML IV NR (11:00)
[2022-04-26 12:00] VITALS: BP 152/104
[2022-04-26 16:00] VITALS: BP 141/89
[2022-04-26 20:00] VITALS: BP 142/94
[2022-04-27] VITALS: BP 117/91
[2022-04-27 04:00] VITALS: BP 146/98
[2022-04-27] MEDS: DEXT 5%/0.45% NACL KCL 20MEQ/L 1,000 ML IV SCH ×3 (04:13→23:45)
[2022-04-27] MEDS: PIPERACILLIN/TAZOBACTAM 3.375 G in DEXTROSE 5% WATER 50 ML IV SCH ×3 (06:03→21:53)
[2022-04-27 07:51] LABS: BASOPHILS % 0.1 % (0.0-2.0); EOSINOPHILS % 0.1 % (0.0-5.0); HEMATOCRIT. 32.5 % (42.0-52.0); HEMOGLOBIN. 11.3 g/dL (14.0-18.0); LYMPHOCYTES % 11.5 % (20.0-50.0); MEAN CORPUSCULAR HEMOGLOBIN 31.6 pg (28.0-32.0); MEAN CORPUSCULAR VOLUME 90.8 fL (80.0-94.0); MEAN PLATELET VOLUME 7.1 fl (7.4-10.4); MONOCYTES % 7.9 % (2.0-8.0); NEUTROPHILS % 80.4 % (40.0-76.0); PLATELET 258 x1000/uL (130-400); RED BLOOD CELL COUNT 3.58 mill/uL (4.7-6.1); RED CELL DISTRIBUTION WIDTH 12.9 % (11.6-14.6)
[2022-04-27 08:00] VITALS: BP 147/98
[2022-04-27 08:03] LABS: CHLORIDE 107 mEq/L (98-107)
[2022-04-27 08:12] LABS: PHOSPHORUS 2.6 mg/dL (2.5-4.9)
[2022-04-27] MEDS: ENOXAPARIN 40MG/0.4ML SYR SUBCUT SCH (09:41)
[2022-04-27 16:00] VITALS: BP 138/89
[2022-04-27 20:00] VITALS: BP 140/91
[2022-04-28] VITALS: BP 130/93
[2022-04-28 04:00] VITALS: BP 134/80
[2022-04-28] MEDS: PIPERACILLIN/TAZOBACTAM 3.375 G in DEXTROSE 5% WATER 50 ML IV SCH ×3 (04:59→21:16)
[2022-04-28 08:00] VITALS: BP 132/83
[2022-04-28 08:07] LABS: BASOPHILS % 0.2 % (0.0-2.0); EOSINOPHILS % 0.4 % (0.0-5.0); HEMATOCRIT. 28.5 % (42.0-52.0); LYMPHOCYTES % 15.9 % (20.0-50.0); MEAN CORPUSCULAR HEMOGLOBIN 31.9 pg (28.0-32.0); MEAN CORPUSCULAR VOLUME 91.3 fL (80.0-94.0); MEAN PLATELET VOLUME 7.5 fl (7.4-10.4); MONOCYTES % 10.9 % (2.0-8.0); NEUTROPHILS % 72.6 % (40.0-76.0); PLATELET 279 x1000/uL (130-400); RED BLOOD CELL COUNT 3.12 mill/uL (4.7-6.1)
[2022-04-28 08:21] LABS: CHLORIDE 107 mEq/L (98-107)
[2022-04-28] MEDS: ENOXAPARIN 40MG/0.4ML SYR SUBCUT SCH (08:28)
[2022-04-28] MEDS ORDERED: POTASSIUM CHLORIDE 20MEQ/PACKET PO NR (09:00)
[2022-04-28] MEDS: DEXT 5%/0.45% NACL KCL 20MEQ/L 1,000 ML IV SCH ×2 (09:45→21:15)
[2022-04-28 12:00] VITALS: BP 144/94
[2022-04-28 16:00] VITALS: BP 143/95
[2022-04-28 20:00] VITALS: BP 132/91
[2022-04-29] VITALS: BP 125/76
[2022-04-29 04:00] VITALS: BP 138/84
[2022-04-29] MEDS: DEXT 5%/0.45% NACL KCL 20MEQ/L 1,000 ML IV SCH ×2 (05:21→21:00)
[2022-04-29] MEDS: PIPERACILLIN/TAZOBACTAM 3.375 G in DEXTROSE 5% WATER 50 ML IV SCH ×3 (05:21→21:09)
[2022-04-29 07:51] LABS: BASOPHILS % 0.3 % (0.0-2.0); EOSINOPHILS % 4.3 % (0.0-5.0); HEMATOCRIT. 27.4 % (42.0-52.0); HEMOGLOBIN. 9.5 g/dL (14.0-18.0); LYMPHOCYTES % 15.6 % (20.0-50.0); MEAN CORPUSCULAR HEMOGLOBIN 31.7 pg (28.0-32.0); MEAN CORPUSCULAR VOLUME 91.4 fL (80.0-94.0); MEAN PLATELET VOLUME 7.2 fl (7.4-10.4); MONOCYTES % 10.9 % (2.0-8.0); NEUTROPHILS % 68.9 % (40.0-76.0); PLATELET 302 x1000/uL (130-400); RED CELL DISTRIBUTION WIDTH 12.7 % (11.6-14.6)
[2022-04-29 07:55] LABS: CHLORIDE 107 mEq/L (98-107)
[2022-04-29 08:00] VITALS: BP 136/84
[2022-04-29 08:00] LABS: PHOSPHORUS 3.1 mg/dL (2.5-4.9)
[2022-04-29] MEDS ORDERED: POTASSIUM CHLORIDE 20MEQ TABLET SR PO NR (08:15)
[2022-04-29] MEDS: ENOXAPARIN 40MG/0.4ML SYR SUBCUT SCH (09:30)
[2022-04-29 12:00] VITALS: BP 136/91
[2022-04-29] MEDS ORDERED: VANCOMYCIN 1G PREMIX 200 ML IV NR (14:29)
[2022-04-29 16:00] VITALS: BP 136/86
[2022-04-29 20:00] VITALS: BP 141/91
[2022-04-30] VITALS: BP 140/89
[2022-04-30] MEDS: DEXT 5%/0.45% NACL KCL 20MEQ/L 1,000 ML IV SCH ×2 (01:45→11:32)
[2022-04-30 04:00] VITALS: BP 131/81
[2022-04-30] MEDS: PIPERACILLIN/TAZOBACTAM 3.375 G in DEXTROSE 5% WATER 50 ML IV SCH ×2 (05:47→16:07)
[2022-04-30 06:59] LABS: BASOPHILS % 0.4 % (0.0-2.0); EOSINOPHILS % 4.6 % (0.0-5.0); HEMOGLOBIN. 11.4 g/dL (14.0-18.0); LYMPHOCYTES % 17.9 % (20.0-50.0); MEAN CORPUSCULAR HEMOGLOBIN 31.7 pg (28.0-32.0); MEAN CORPUSCULAR VOLUME 92.2 fL (80.0-94.0); MEAN PLATELET VOLUME 7.3 fl (7.4-10.4); MONOCYTES % 8.7 % (2.0-8.0); NEUTROPHILS % 68.4 % (40.0-76.0); PLATELET 410 x1000/uL (130-400); RED BLOOD CELL COUNT 3.58 mill/uL (4.7-6.1); RED CELL DISTRIBUTION WIDTH 12.9 % (11.6-14.6)
[2022-04-30 08:06] LABS: CHLORIDE 105 mEq/L (98-107)
[2022-04-30 08:13] LABS: PHOSPHORUS 3.3 mg/dL (2.5-4.9)
[2022-04-30] MEDS ORDERED: POTASSIUM CHLORIDE 20MEQ TABLET SR PO SCH (09:00)
[2022-04-30] MEDS: ENOXAPARIN 40MG/0.4ML SYR SUBCUT SCH (09:28)
[2022-04-30] MEDS ORDERED: POTASSIUM CHLORIDE INJ 40 MEQ in DEXT 5% WATER 500 ML IV ONE (11:00)
[2022-04-30] MEDS ORDERED: VANCOMYCIN 1G PREMIX 200 ML IV NR (15:00)
[2022-04-30] MEDS: DICLOFENAC SODIUM 1% GEL 50GM TOP SCH ×2 (16:16→17:39)
[2022-04-30 18:11] VITALS: BP 148/94
== END 2022-04-30 19:45 | disposition home or self-care (01) | DRG 415 ==
LOC: OR 07:15 → 6EST 19:38
PROVIDERS: ADMIT Surgery; ATTEND Surgery
PROC: 0FT40ZZ Resection of Gallbladder, Open Approach (ICD-10-PCS; principal; 2022-04-24)
PROC: 0FJ44ZZ Inspection of Gallbladder, Percutaneous Endoscopic Approach (ICD-10-PCS; 2022-04-24)
PROC: 0DNW0ZZ Release Peritoneum, Open Approach (ICD-10-PCS; 2022-04-24)
DX: K81.9 Cholecystitis, unspecified (principal); L03.116 Cellulitis of left lower limb; K66.0 Peritoneal adhesions (postprocedural) (postinfection); E87.6 Hypokalemia; N40.0 Benign prostatic hyperplasia without lower urinary tract symptoms; Z20.822 Contact with and (suspected) exposure to COVID-19; R73.9 Hyperglycemia, unspecified; E83.39 Other disorders of phosphorus metabolism; D63.8 Anemia in other chronic diseases classified elsewhere; I10 Essential (primary) hypertension; M17.12 Unilateral primary osteoarthritis, left knee; Z53.31 Laparoscopic surgical procedure converted to open procedure
CPT/HCPCS: 36415; 73721; 80048; 80053; 80076; 81003; 83735; 84100; 85014; 85018; 85025; 85651; 86850; 86900; 86920; 87426; 88304; 97116; 97162; C9803; J0690; J1100; J1170; J1200; J1650; J2250; J2405; J2543; J2704; J2710; J3010; J3370; J3480; J3490; J7030; J7060; P9041; A4315

== ENCOUNTER → 2022-05-03 | Outpatient (CLI) | payer BC ==
[2022-05-03 13:17] LABS: BASOPHILS % 0.4 % (0.0-2.0); EOSINOPHILS % 0.8 % (0.0-5.0); HEMATOCRIT. 30.3 % (42.0-52.0); HEMOGLOBIN. 10.2 g/dL (14.0-18.0); LYMPHOCYTES % 12.8 % (20.0-50.0); MEAN CORPUSCULAR VOLUME 92.1 fL (80.0-94.0); MEAN PLATELET VOLUME 6.8 fl (7.4-10.4); MONOCYTES % 10.7 % (2.0-8.0); NEUTROPHILS % 75.3 % (40.0-76.0); PLATELET 595 x1000/uL (130-400); RED BLOOD CELL COUNT 3.29 mill/uL (4.7-6.1); RED CELL DISTRIBUTION WIDTH 12.9 % (11.6-14.6)
[2022-05-03 13:22] LABS: CHLORIDE 103 mEq/L (98-107)
== END | disposition home or self-care (01) ==
LOC: LAB 11:57
PROVIDERS: ATTEND Internal Medicine Geriatric Medicine
DX: J98.11 Atelectasis (principal); J18.9 Pneumonia, unspecified organism; R74.01 Elevation of levels of liver transaminase levels
CPT/HCPCS: 36415; 71046; 80053; 85025

== ENCOUNTER 2022-05-04 10:23 | Inpatient (IN) | payer BC ==
[~2022-05-04] VITALS: Ht 165.1 cm; Wt 72.6 kg
[2022-05-04] VITALS (14 sets, daily range): BP systolic 141–148; BP diastolic 83–98
[~2022-05-04 10:23] MED LIST changes: -BARIUM SULFATE 450ML ORAL SUSP PO SCH; -DIATR MEGLU/DIATRIZOATE SOLN 30ML PO SCH
[2022-05-04] MEDS: IPRATROPIUM/ALBUTEROL 0.5-3(2.5)MG/3ML NEB HHN SCH ×3 (10:45→22:10)
[2022-05-04] MEDS ORDERED: CLONIDINE 0.1MG TABLET PO PRN (10:45)
[2022-05-04] MEDS ORDERED: ACETAMINOPHEN 325MG TABLET PO PRN (10:45)
[2022-05-04] MEDS ORDERED: PIPERACILLIN/TAZ 3.375G PREMIX 50 ML IV SCH (10:45)
[2022-05-04] MEDS ORDERED: ONDANSETRON HCL 4MG/2ML INJ IV PRN (10:45)
[2022-05-04] MEDS ORDERED: SODIUM BICARBONATE 4% (2.4MEQ) 5ML VIAL IV ONE (10:48)
[2022-05-04] MEDS ORDERED: LIDOCAINE HCL/PF 1% 10 MG/ML 5ML VIAL ONE ×2 (10:48)
[2022-05-04] MEDS ORDERED: FENTANYL CITRATE/PF 50MCG/ML 2ML VIAL ONE (10:49)
[2022-05-04] MEDS ORDERED: MIDAZOLAM HCL 2 MG/2 ML VIAL ONE (10:50)
[2022-05-04] MEDS ORDERED: FAMOTIDINE 20MG TABLET PO NR (11:00)
[2022-05-04] MEDS ORDERED: NALOXONE HCL 0.4MG/ML VIAL IV PRN (11:00)
[2022-05-04] MEDS ORDERED: SODIUM CHL 0.45% + KCL 20MEQ/L 1,000 ML IV SCH (11:00)
[2022-05-04] MEDS ORDERED: SODIUM CHLORIDE 0.9% 1,000 ML IV ONE (11:30)
[2022-05-04 11:47] LABS: BASOPHILS % 0.4 % (0.0-2.0); EOSINOPHILS % 0.3 % (0.0-5.0); HEMATOCRIT. 31.6 % (42.0-52.0); HEMOGLOBIN. 10.7 g/dL (14.0-18.0); LYMPHOCYTES % 8.7 % (20.0-50.0); MEAN CORPUSCULAR HEMOGLOBIN 31.1 pg (28.0-32.0); MONOCYTES % 6.9 % (2.0-8.0); NEUTROPHILS % 83.7 % (40.0-76.0); PLATELET 635 x1000/uL (130-400); RED BLOOD CELL COUNT 3.44 mill/uL (4.7-6.1); RED CELL DISTRIBUTION WIDTH 12.9 % (11.6-14.6)
[2022-05-04 11:48] LABS: CLARITY URINE CLEAR (CLEAR); COLOR URINE YELLOW (YELLOW); KETONES URINE 1+ (NEGATIVE); LEUKOCYTE ESTERASE URINE NEGATIVE (NEGATIVE); NITRITE URINE NEGATIVE (NEGATIVE); OCCULT BLOOD URINE TRACE (NEGATIVE); PH URINE 5.5 (4.5-8.0); PROTEIN URINE 1+ (NEGATIVE); SPECIFIC GRAVITY URINE 1.064 (1.005-1.030); UROBILINOGEN URINE 0.2 E.U./dL (0.2-1.0)
[2022-05-04 11:54] LABS: CHLORIDE 105 mEq/L (98-107)
[2022-05-04 11:58] LABS: INR 1.1; PARTIAL THROMBOPLASTIN TIME 32.8 sec (23.4-31.0); PROTHROMBIN TIME 11.4 sec (9.6-11.0)
[2022-05-04] MEDS ORDERED: IOHEXOL-300 100 ML BOTTLE ONE (12:20)
[2022-05-04] MEDS: DICLOFENAC SODIUM 1% GEL 50GM TOP SCH ×3 (13:00→21:00)
[2022-05-04] MEDS ORDERED: MIDAZOLAM HCL 2 MG/2 ML VIAL IV ONE (13:00)
[2022-05-04] MEDS ORDERED: FENTANYL CITRATE/PF 50MCG/ML 2ML VIAL IV ONE (13:00)
[2022-05-04] MEDS: DOCUSATE SODIUM 250MG CAPSULE PO SCH (13:37)
[2022-05-04] MEDS: ENOXAPARIN 40MG/0.4ML SYR SUBCUT SCH (13:47)
[2022-05-04] MEDS: FAMOTIDINE 20MG TABLET PO SCH (22:06)
[2022-05-04] MEDS: HYDROCODONE/ACETAMINOPHEN 5/325MG TABLET PO PRN (22:08)
[2022-05-05] MEDS: IPRATROPIUM/ALBUTEROL 0.5-3(2.5)MG/3ML NEB HHN SCH ×6 (01:50→21:07)
[2022-05-05] MEDS: SODIUM CHL 0.45% + KCL 20MEQ/L 1,000 ML IV SCH ×2 (01:59→17:21)
[2022-05-05] MEDS: PIPERACILLIN/TAZOBACTAM 3.375G in DEXT 5% WATER 50ML IV SCH ×3 (06:34→21:59)
[2022-05-05 06:36] LABS: BASOPHILS % 0.2 % (0.0-2.0); EOSINOPHILS % 0.8 % (0.0-5.0); HEMATOCRIT. 27.9 % (42.0-52.0); HEMOGLOBIN. 9.6 g/dL (14.0-18.0); MEAN CORPUSCULAR HEMOGLOBIN 31.6 pg (28.0-32.0); MEAN CORPUSCULAR VOLUME 92.2 fL (80.0-94.0); PLATELET 635 x1000/uL (130-400); RED BLOOD CELL COUNT 3.03 mill/uL (4.7-6.1); RED CELL DISTRIBUTION WIDTH 12.6 % (11.6-14.6)
[2022-05-05 07:06] LABS: CHLORIDE 105 mEq/L (98-107)
[2022-05-05 08:20] VITALS: BP 131/81
[2022-05-05] MEDS: DOCUSATE SODIUM 250MG CAPSULE PO SCH (09:09)
[2022-05-05] MEDS: FAMOTIDINE 20MG TABLET PO SCH ×2 (09:09→21:59)
[2022-05-05] MEDS: MAGNESIUM/ALUMINUM HYDROXIDE/SIMETHICONE 30ML UDC PO PRN (09:10)
[2022-05-05] MEDS: ENOXAPARIN 40MG/0.4ML SYR SUBCUT SCH (09:10)
[2022-05-05] MEDS: HYDROCODONE/ACETAMINOPHEN 5/325MG TABLET PO PRN ×2 (09:15→17:42)
[2022-05-05] MEDS: DICLOFENAC SODIUM 1% GEL 50GM TOP SCH ×4 (09:20→21:00)
[2022-05-05 12:00] VITALS: BP 119/73
[2022-05-05 16:00] VITALS: BP 128/80
[2022-05-05 20:00] VITALS: BP 119/71
[2022-05-06] VITALS: BP 122/75
[2022-05-06] MEDS: IPRATROPIUM/ALBUTEROL 0.5-3(2.5)MG/3ML NEB HHN SCH ×5 (00:39→20:59)
[2022-05-06 04:00] VITALS: BP 125/79
[2022-05-06 08:00] VITALS: BP 127/78
[2022-05-06] MEDS: FAMOTIDINE 20MG TABLET PO SCH ×2 (09:01→22:16)
[2022-05-06] MEDS: DOCUSATE SODIUM 250MG CAPSULE PO SCH (09:01)
[2022-05-06] MEDS: DICLOFENAC SODIUM 1% GEL 50GM TOP SCH ×4 (09:02→22:18)
[2022-05-06] MEDS: ENOXAPARIN 40MG/0.4ML SYR SUBCUT SCH (09:02)
[2022-05-06] MEDS: MAGNESIUM/ALUMINUM HYDROXIDE/SIMETHICONE 30ML UDC PO PRN (09:03)
[2022-05-06] MEDS: HYDROCODONE/ACETAMINOPHEN 5/325MG TABLET PO PRN ×2 (09:04→14:11)
[2022-05-06 11:24] LABS: BASOPHILS % 0.2 % (0.0-2.0); EOSINOPHILS % 1.1 % (0.0-5.0); HEMATOCRIT. 27.2 % (42.0-52.0); HEMOGLOBIN. 9.5 g/dL (14.0-18.0); LYMPHOCYTES % 15.3 % (20.0-50.0); MEAN CORPUSCULAR HEMOGLOBIN 31.9 pg (28.0-32.0); MEAN CORPUSCULAR VOLUME 91.4 fL (80.0-94.0); MEAN PLATELET VOLUME 6.8 fl (7.4-10.4); MONOCYTES % 7.6 % (2.0-8.0); NEUTROPHILS % 75.8 % (40.0-76.0); PLATELET 667 x1000/uL (130-400); RED BLOOD CELL COUNT 2.98 mill/uL (4.7-6.1)
[2022-05-06 12:00] VITALS: BP 127/79
[2022-05-06 12:37] LABS: CHLORIDE 106 mEq/L (98-107)
[2022-05-06] MEDS: SODIUM CHL 0.45% + KCL 20MEQ/L 1,000 ML IV SCH (14:09)
[2022-05-06] MEDS: PIPERACILLIN/TAZOBACTAM 3.375G in DEXT 5% WATER 50ML IV SCH ×2 (14:09→22:16)
[2022-05-06 16:00] VITALS: BP 124/80
[2022-05-06 20:00] VITALS: BP 116/77
[2022-05-07] VITALS: BP 132/80
[2022-05-07] MEDS: IPRATROPIUM/ALBUTEROL 0.5-3(2.5)MG/3ML NEB HHN SCH ×6 (00:33→22:05)
[2022-05-07 04:00] VITALS: BP 124/82
[2022-05-07] MEDS: SODIUM CHL 0.45% + KCL 20MEQ/L 1,000 ML IV SCH ×2 (05:52→19:10)
[2022-05-07] MEDS: PIPERACILLIN/TAZOBACTAM 3.375G in DEXT 5% WATER 50ML IV SCH ×3 (05:52→22:19)
[2022-05-07 06:51] LABS: BASOPHILS % 0.4 % (0.0-2.0); EOSINOPHILS % 1.8 % (0.0-5.0); HEMATOCRIT. 27.1 % (42.0-52.0); HEMOGLOBIN. 9.6 g/dL (14.0-18.0); LYMPHOCYTES % 18.3 % (20.0-50.0); MEAN CORPUSCULAR VOLUME 90.6 fL (80.0-94.0); MEAN PLATELET VOLUME 6.8 fl (7.4-10.4); MONOCYTES % 8.2 % (2.0-8.0); NEUTROPHILS % 71.3 % (40.0-76.0); PLATELET 713 x1000/uL (130-400); RED BLOOD CELL COUNT 2.99 mill/uL (4.7-6.1); RED CELL DISTRIBUTION WIDTH 12.6 % (11.6-14.6)
[2022-05-07 08:00] VITALS: BP 117/79
[2022-05-07] MEDS: DICLOFENAC SODIUM 1% GEL 50GM TOP SCH ×4 (08:39→21:00)
[2022-05-07] MEDS: FAMOTIDINE 20MG TABLET PO SCH ×2 (08:39→22:19)
[2022-05-07] MEDS: ENOXAPARIN 40MG/0.4ML SYR SUBCUT SCH (08:39)
[2022-05-07] MEDS: DOCUSATE SODIUM 250MG CAPSULE PO SCH (08:39)
[2022-05-07 10:35] LABS: CHLORIDE 107 mEq/L (98-107)
[2022-05-07 12:00] VITALS: BP 115/79
[2022-05-07 16:00] VITALS: BP 121/74
[2022-05-07 20:00] VITALS: BP 126/80
[2022-05-08] VITALS: BP 122/75
[2022-05-08] MEDS: IPRATROPIUM/ALBUTEROL 0.5-3(2.5)MG/3ML NEB HHN SCH ×7 (01:27→22:42)
[2022-05-08] MEDS: PIPERACILLIN/TAZOBACTAM 3.375G in DEXT 5% WATER 50ML IV SCH ×2 (06:33→13:36)
[2022-05-08 08:00] VITALS: BP 121/79
[2022-05-08] MEDS: DICLOFENAC SODIUM 1% GEL 50GM TOP SCH ×4 (08:19→21:00)
[2022-05-08] MEDS: DOCUSATE SODIUM 250MG CAPSULE PO SCH (08:19)
[2022-05-08] MEDS: FAMOTIDINE 20MG TABLET PO SCH ×2 (08:19→21:34)
[2022-05-08] MEDS: ENOXAPARIN 40MG/0.4ML SYR SUBCUT SCH (08:19)
[2022-05-08] MEDS: SODIUM CHL 0.45% + KCL 20MEQ/L 1,000 ML IV SCH (08:19)
[2022-05-08 12:00] VITALS: BP 123/83
[2022-05-08] MEDS: HYDROCODONE/ACETAMINOPHEN 5/325MG TABLET PO PRN ×2 (12:08→17:20)
[2022-05-08 16:00] VITALS: BP 116/72
[2022-05-08 17:01] VITALS: BP 116/77
[2022-05-08] MEDS: LINEZOLID 600MG TABLET PO SCH (17:19)
[2022-05-08 20:00] VITALS: BP 116/79
[2022-05-08] MEDS: AMOXICILLIN/POTASSIUM CLAVULANATE 500/125MG TAB PO SCH (21:33)
[2022-05-09] VITALS: BP 132/84
[2022-05-09] MEDS: IPRATROPIUM/ALBUTEROL 0.5-3(2.5)MG/3ML NEB HHN SCH ×5 (01:39→17:19)
[2022-05-09 04:00] VITALS: BP 134/86
[2022-05-09] MEDS: AMOXICILLIN/POTASSIUM CLAVULANATE 500/125MG TAB PO SCH ×2 (05:56→14:00)
[2022-05-09 08:00] VITALS: BP 115/74
[2022-05-09] MEDS: DICLOFENAC SODIUM 1% GEL 50GM TOP SCH ×3 (09:00→17:00)
[2022-05-09] MEDS: DOCUSATE SODIUM 250MG CAPSULE PO SCH (09:42)
[2022-05-09] MEDS: LINEZOLID 600MG TABLET PO SCH (09:42)
[2022-05-09] MEDS: FAMOTIDINE 20MG TABLET PO SCH (09:42)
[2022-05-09] MEDS: ENOXAPARIN 40MG/0.4ML SYR SUBCUT SCH (09:43)
[2022-05-09 12:00] VITALS: BP 119/74
[2022-05-09 12:45] LABS: TOTAL IRON BINDING CAPACITY 145 ug/dL (250-450)
[2022-05-09 16:00] VITALS: BP 113/72
== END 2022-05-09 18:52 | disposition home or self-care (01) | DRG 871 ==
LOC: ER 10:23 → 6EST 12:43 → EDBEDREQTM 12:46 → EDBEDREQ 12:46
PROVIDERS: ADMIT Internal Medicine Geriatric Medicine; ATTEND Internal Medicine Geriatric Medicine
PROC: 0W9G3ZX Drainage of Peritoneal Cavity, Percutaneous Approach, Diagnostic (ICD-10-PCS; principal; 2022-05-04)
DX: A41.9 Sepsis, unspecified organism (principal); K65.1 Peritoneal abscess; L02.211 Cutaneous abscess of abdominal wall; M25.511 Pain in right shoulder; I10 Essential (primary) hypertension; K57.90 Diverticulosis of intestine, part unspecified, without perforation or abscess without bleeding; M19.011 Primary osteoarthritis, right shoulder; K66.0 Peritoneal adhesions (postprocedural) (postinfection); N40.0 Benign prostatic hyperplasia without lower urinary tract symptoms; Z90.49 Acquired absence of other specified parts of digestive tract
CPT/HCPCS: 36415; 77012; 80048; 80053; 81003; 83540; 83550; 83605; 85025; 87077; 87186; 87426; 93005; 93306; 94640; 97162; 97530; 99152; 99153; 99285; C1729; C1760; J1650; J2250; J2543; J3010; J3480; J3490; J7060; Q9967; G0500

== ENCOUNTER → 2022-05-04 | Outpatient (CLI) | payer BC ==
[~2022-05-04] MED LIST changes: +BARIUM SULFATE 450ML ORAL SUSP PO SCH; +DIATR MEGLU/DIATRIZOATE SOLN 30ML PO SCH
== END | disposition home or self-care (01) ==
LOC: US 07:34
PROVIDERS: ATTEND Internal Medicine Geriatric Medicine
DX: J98.11 Atelectasis (principal); K74.69 Other cirrhosis of liver; K57.90 Diverticulosis of intestine, part unspecified, without perforation or abscess without bleeding; J90 Pleural effusion, not elsewhere classified; Z90.49 Acquired absence of other specified parts of digestive tract
CPT/HCPCS: 74177; 76700

== ENCOUNTER → 2022-05-17 | Outpatient (CLI) | payer BC ==
[2022-05-17 16:10] LABS: BASOPHILS % 0.3 % (0.0-2.0); EOSINOPHILS % 3.1 % (0.0-5.0); HEMATOCRIT. 32.2 % (42.0-52.0); HEMOGLOBIN. 10.9 g/dL (14.0-18.0); LYMPHOCYTES % 19.3 % (20.0-50.0); MEAN CORPUSCULAR HEMOGLOBIN 30.1 pg (28.0-32.0); MEAN CORPUSCULAR VOLUME 88.8 fL (80.0-94.0); MEAN PLATELET VOLUME 5.7 fl (7.4-10.4); MONOCYTES % 9.1 % (2.0-8.0); NEUTROPHILS % 68.2 % (40.0-76.0); PLATELET 570 x1000/uL (130-400); RED BLOOD CELL COUNT 3.62 mill/uL (4.7-6.1); RED CELL DISTRIBUTION WIDTH 13.6 % (11.6-14.6)
[2022-05-17 16:32] LABS: CHLORIDE 106 mEq/L (98-107)
== END | disposition home or self-care (01) ==
LOC: LAB 15:38
PROVIDERS: ATTEND Internal Medicine Geriatric Medicine
DX: I10 Essential (primary) hypertension (principal); D72.118 Other hypereosinophilic syndrome; G92.8 Other toxic encephalopathy
CPT/HCPCS: 36415; 80053; 85025

== ENCOUNTER → 2022-05-25 | Outpatient (CLI) | payer BC ==
[~2022-05-25] MED LIST changes: +IOHEXOL-300 50 ML BOTTLE IV ONE
== END | disposition home or self-care (01) ==
LOC: CT 11:16
PROVIDERS: ATTEND Surgery
DX: J98.11 Atelectasis (principal); J90 Pleural effusion, not elsewhere classified; K76.89 Other specified diseases of liver; K75.0 Abscess of liver
CPT/HCPCS: 74176; Q9967

== ENCOUNTER → 2022-05-25 | Outpatient (CLI) | payer BC ==
[~2022-05-25] MED LIST changes: -IOHEXOL-300 50 ML BOTTLE IV ONE
== END | disposition home or self-care (01) ==
LOC: LAB 11:05
PROVIDERS: ATTEND Internal Medicine Geriatric Medicine
DX: K75.0 Abscess of liver (principal)
CPT/HCPCS: 87070; 87077; 87186

== ENCOUNTER → 2022-07-26 | Outpatient (CLI) | payer BC | END | disposition home or self-care (01) | LOC: NM 08:28 | PROVIDERS: ATTEND Internal Medicine Geriatric Medicine | DX: R06.02 Shortness of breath (principal); R09.1 Pleurisy | CPT/HCPCS: 71046; 78582; A9540; A9558 ==

== ENCOUNTER → 2022-08-07 | Outpatient (CLI) | payer BC ==
[2022-08-07 10:38] LABS: BASOPHILS % 0.4 % (0.0-2.0); HEMATOCRIT. 45.7 % (42.0-52.0); HEMOGLOBIN. 15.5 g/dL (14.0-18.0); LYMPHOCYTES % 33.2 % (20.0-50.0); MEAN CORPUSCULAR HEMOGLOBIN 28.9 pg (28.0-32.0); MEAN CORPUSCULAR VOLUME 85.2 fL (80.0-94.0); MEAN PLATELET VOLUME 6.5 fl (7.4-10.4); MONOCYTES % 8.5 % (2.0-8.0); NEUTROPHILS % 53.9 % (40.0-76.0); PLATELET 344 x1000/uL (130-400); RED BLOOD CELL COUNT 5.36 mill/uL (4.7-6.1); RED CELL DISTRIBUTION WIDTH 16.5 % (11.6-14.6)
[2022-08-07 11:14] LABS: CHLORIDE 108 mEq/L (98-107)
[2022-08-07 11:23] LABS: TOTAL IRON BINDING CAPACITY 326 ug/dL (250-450)
== END | disposition home or self-care (01) ==
LOC: LAB 10:17
PROVIDERS: ATTEND Internal Medicine Geriatric Medicine
DX: I10 Essential (primary) hypertension (principal); D50.9 Iron deficiency anemia, unspecified; D72.118 Other hypereosinophilic syndrome; G92.8 Other toxic encephalopathy
CPT/HCPCS: 36415; 80053; 82728; 83540; 83550; 85025

== ENCOUNTER → 2022-08-16 | Outpatient (CLI) | payer BC ==
[~2022-08-16] MED LIST changes: +BARIUM SULFATE 450ML ORAL SUSP ONE; +IOHEXOL-300 100 ML BOTTLE ONE
== END | disposition home or self-care (01) ==
LOC: CT 07:58
PROVIDERS: ATTEND Internal Medicine Geriatric Medicine
DX: K76.0 Fatty (change of) liver, not elsewhere classified (principal); K76.89 Other specified diseases of liver; K75.0 Abscess of liver; K57.30 Diverticulosis of large intestine without perforation or abscess without bleeding; Z90.49 Acquired absence of other specified parts of digestive tract
CPT/HCPCS: 74177; Q9967

== ENCOUNTER → 2022-12-11 | Outpatient (CLI) | payer BC ==
[~2022-12-11] MED LIST changes: -BARIUM SULFATE 450ML ORAL SUSP ONE; -IOHEXOL-300 100 ML BOTTLE ONE
[2022-12-11 16:57] LABS: ALBUMIN 3.8 g/dL (3.4-5.0); CHLORIDE 107 mEq/L (98-107); INDEX HEMOLYSI 1 (1-3); INDEX ICTERIC 1 (1-4); INDEX LIPEMIC 1 (1-3); POTASSIUM 3.1 mEq/L (3.5-5.1); SODIUM 141 mEq/L (136-145)
[2022-12-11 18:33] LABS: ALANINE AMINOTRANSFERASE 39 IU/L (13-61); ASPARTATE AMINOTRANSFERASE 32 IU/L (15-37); BILIRUBIN TOTAL 0.6 mg/dL (0.1-1.0); CALCIUM 8.6 mg/dL (8.5-10.1); CARBON DIOXIDE 28 mEq/L (21-32); GLUCOSE 89 mg/dL (70-105); HDL CHOLESTEROL 45 mg/dL (40-59); LDL CHOLESTEROL 121 mg/dL (5-100); PROTEIN TOTAL 7.1 g/dL (6.0-8.3); TRIGLYCERIDE 150 mg/dL (0-150); UREA NITROGEN BLOOD 17 mg/dL (7-21)
[2022-12-12 14:49] LABS: CHOLESTEROL 186 mg/dL (<200)
== END | disposition home or self-care (01) ==
LOC: LAB 15:47
PROVIDERS: ATTEND Internal Medicine Geriatric Medicine
DX: I10 Essential (primary) hypertension (principal)
CPT/HCPCS: 36415; 80053; 80061; 86301

== ENCOUNTER → 2023-05-09 | Outpatient (CLI) | payer BC ==
[2023-05-09 09:57] LABS: CLARITY URINE CLEAR (CLEAR); COLOR URINE YELLOW (YELLOW); GLUCOSE URINE NEGATIVE (NEGATIVE); KETONES URINE NEGATIVE (NEGATIVE); LEUKOCYTE ESTERASE URINE NEGATIVE (NEGATIVE); NITRITE URINE NEGATIVE (NEGATIVE); OCCULT BLOOD URINE NEGATIVE (NEGATIVE); PH URINE 6.5 (4.5-8.0); PROTEIN URINE NEGATIVE (NEGATIVE); SPECIFIC GRAVITY URINE 1.005 (1.005-1.030); UROBILINOGEN URINE 0.2 E.U./dL (0.2-1.0)
== END | disposition home or self-care (01) ==
LOC: LAB 09:37
PROVIDERS: ATTEND Internal Medicine Geriatric Medicine
DX: N39.0 Urinary tract infection, site not specified (principal)
CPT/HCPCS: 81003

== ENCOUNTER → 2023-06-14 | Outpatient (CLI) | payer BC ==
[2023-06-14 07:36] LABS: BASOPHILS % 0.4 % (0.0-2.0); EOSINOPHILS % 4.3 % (0.0-5.0); HEMATOCRIT. 49.5 % (42.0-52.0); HEMOGLOBIN. 17.3 g/dL (14.0-18.0); LYMPHOCYTES % 29.8 % (20.0-50.0); MEAN CORPUSCULAR HEMOGLOBIN 31.2 pg (28.0-32.0); MEAN CORPUSCULAR HGB CONC 34.9 g/dL (31.0-37.0); MEAN CORPUSCULAR VOLUME 89.5 fL (80.0-94.0); MEAN PLATELET VOLUME 7.3 fl (7.4-10.4); MONOCYTES % 7.8 % (2.0-8.0); NEUTROPHILS % 57.7 % (40.0-76.0); PLATELET 336 x1000/uL (130-400); RED BLOOD CELL COUNT 5.53 mill/uL (4.7-6.1); RED CELL DISTRIBUTION WIDTH 13.4 % (11.6-14.6); WHITE BLOOD COUNT 7.8 x1000/uL (4.5-11.0)
[2023-06-14 08:19] LABS: ALANINE AMINOTRANSFERASE 42 IU/L (10-49); ALBUMIN 4.5 g/dL (3.2-4.8); ASPARTATE AMINOTRANSFERASE 31 IU/L (<34); BILIRUBIN TOTAL 0.7 mg/dL (0.1-1.0); CALCIUM 9.2 mg/dL (8.7-10.4); CARBON DIOXIDE 30 mEq/L (21-32); CHLORIDE 105 mEq/L (98-107); CHOLESTEROL 180 mg/dL (<200); CREATININE 0.8 mg/dL (0.6-1.3); GLUCOSE 96 mg/dL (70-105); HDL CHOLESTEROL 28 mg/dL (>55); IRON 91 ug/dL (65-175); LDL CHOLESTEROL 110 mg/dL (5-100); POTASSIUM 3.1 mEq/L (3.5-5.1); PROTEIN TOTAL 7.1 g/dL (6.0-8.3); SODIUM 141 mEq/L (136-145); THYROID STIMULATING HORMONE 1.17 uIU/mL (0.55-4.78); TOTAL IRON BINDING CAPACITY 331 ug/dl (250-425); TRIGLYCERIDE 230 mg/dL (0-150); UREA NITROGEN BLOOD 11 mg/dL (9-23)
[2023-06-14 08:42] LABS: FERRITIN 62 ng/mL (22-322); FOLIC ACID (FOLATE) SERUM > 20.00 ng/mL (>5.38); VITAMIN B12 SERUM 154 pg/mL (211-911)
[2023-06-15 09:07] LABS: VITAMIN D 25-OH 16.9 ng/mL (30.0-100.0)
[2023-06-15 13:07] LABS: PROSTATE SPECIFIC AG TOTAL 1.7 ng/mL (0.0-4.0)
== END | disposition home or self-care (01) ==
LOC: LAB 06:44
PROVIDERS: ATTEND Internal Medicine Geriatric Medicine
DX: Z00.01 Encounter for general adult medical examination with abnormal findings (principal); I10 Essential (primary) hypertension; D72.118 Other hypereosinophilic syndrome; E78.5 Hyperlipidemia, unspecified; E87.6 Hypokalemia; K29.70 Gastritis, unspecified, without bleeding; K75.0 Abscess of liver
CPT/HCPCS: 36415; 80053; 80061; 82306; 82607; 82728; 82746; 83036; 83540; 83550; 84153; 84443; 85025; 86592

== ENCOUNTER → 2023-08-23 | Outpatient (CLI) | payer BC ==
[2023-08-23 16:32] LABS: CALCIUM 8.7 mg/dL (8.7-10.4); CARBON DIOXIDE 28 mEq/L (21-32); CHLORIDE 107 mEq/L (98-107); CREATININE 1.2 mg/dL (0.6-1.3); GLUCOSE 95 mg/dL (70-105); POTASSIUM 3.3 mEq/L (3.5-5.1); SODIUM 141 mEq/L (136-145); UREA NITROGEN BLOOD 14 mg/dL (9-23)
== END | disposition home or self-care (01) ==
LOC: LAB 15:52
PROVIDERS: ATTEND Internal Medicine Geriatric Medicine
DX: E87.6 Hypokalemia (principal)
CPT/HCPCS: 36415; 80048

== ENCOUNTER → 2023-11-13 | Outpatient (CLI) | payer BC ==
[2023-11-13 16:47] LABS: CLARITY URINE CLEAR (CLEAR); COLOR URINE YELLOW (YELLOW); GLUCOSE URINE NEGATIVE (NEGATIVE); KETONES URINE NEGATIVE (NEGATIVE); LEUKOCYTE ESTERASE URINE NEGATIVE (NEGATIVE); NITRITE URINE NEGATIVE (NEGATIVE); OCCULT BLOOD URINE NEGATIVE (NEGATIVE); PH URINE 6.5 (4.5-8.0); PROTEIN URINE TRACE (NEGATIVE); SPECIFIC GRAVITY URINE 1.016 (1.005-1.030)
[2023-11-13 17:06] LABS: BASOPHILS % 0.5 % (0.0-2.0); EOSINOPHILS % 3.7 % (0.0-5.0); HEMATOCRIT. 46.8 % (42.0-52.0); HEMOGLOBIN. 16.2 g/dL (14.0-18.0); LYMPHOCYTES % 31.2 % (20.0-50.0); MEAN CORPUSCULAR HEMOGLOBIN 31.8 pg (28.0-32.0); MEAN CORPUSCULAR HGB CONC 34.6 g/dL (31.0-37.0); MEAN CORPUSCULAR VOLUME 91.9 fL (80.0-94.0); MEAN PLATELET VOLUME 7.4 fl (7.4-10.4); MONOCYTES % 8.3 % (2.0-8.0); NEUTROPHILS % 56.3 % (40.0-76.0); PLATELET 324 x1000/uL (130-400); RED CELL DISTRIBUTION WIDTH 13.8 % (11.6-14.6); WHITE BLOOD COUNT 10.4 x1000/uL (4.5-11.0)
[2023-11-13 17:10] LABS: CHLORIDE 108 mEq/L (98-107); POTASSIUM 3.1 mEq/L (3.5-5.1); SODIUM 144 mEq/L (136-145)
[2023-11-13 17:11] LABS: CARBON DIOXIDE 31 mEq/L (21-32)
[2023-11-13 17:12] LABS: CALCIUM 9.1 mg/dL (8.7-10.4)
[2023-11-13 17:16] LABS: CREATININE 1.2 mg/dL (0.6-1.3); GLUCOSE 97 mg/dL (70-105)
[2023-11-13 17:17] LABS: UREA NITROGEN BLOOD 12 mg/dL (9-23)
[2023-11-13 17:30] LABS: BACTERIA URINE TRACE; RBC URINE NONE SEEN /hpf (0-2); SQUAMOUS EPITHELIAL CELL URINE RARE /lpf (RARE/1+); WBC URINE 0-2 /hpf (0-2)
== END | disposition home or self-care (01) ==
LOC: LAB 16:01
PROVIDERS: ATTEND Internal Medicine Geriatric Medicine
DX: I10 Essential (primary) hypertension (principal); E87.6 Hypokalemia
CPT/HCPCS: 36415; 80048; 81003; 85025

== ENCOUNTER → 2024-01-24 | Outpatient (CLI) | payer BC ==
[~2024-01-24] MED LIST changes: +ONDA-239 PO; -ONDA4TAB11 PO
[2024-01-24 16:41] LABS: CHLORIDE 107 mEq/L (98-107); POTASSIUM 3.1 mEq/L (3.5-5.1); SODIUM 142 mEq/L (136-145)
[2024-01-24 16:42] LABS: CARBON DIOXIDE 28 mEq/L (21-32)
[2024-01-24 16:43] LABS: CALCIUM 9.3 mg/dL (8.7-10.4)
[2024-01-24 16:47] LABS: CREATININE 1.1 mg/dL (0.6-1.3); GLUCOSE 91 mg/dL (70-105)
[2024-01-24 16:48] LABS: UREA NITROGEN BLOOD 10 mg/dL (9-23)
== END | disposition home or self-care (01) ==
LOC: LAB 15:55
PROVIDERS: ATTEND Internal Medicine Geriatric Medicine
DX: E87.6 Hypokalemia (principal)
CPT/HCPCS: 36415; 80048; 83735

== ENCOUNTER → 2024-02-20 | Outpatient (CLI) | payer BC ==
[2024-02-20 12:21] LABS: BASOPHILS % 0.5 % (0.0-2.0); EOSINOPHILS % 2.9 % (0.0-5.0); HEMATOCRIT. 50.1 % (42.0-52.0); HEMOGLOBIN. 16.6 g/dL (14.0-18.0); MEAN CORPUSCULAR HEMOGLOBIN 30.9 pg (28.0-32.0); MEAN CORPUSCULAR VOLUME 93.6 fL (80.0-94.0); MEAN PLATELET VOLUME 7.1 fl (7.4-10.4); MONOCYTES % 8.7 % (2.0-8.0); NEUTROPHILS % 59.9 % (40.0-76.0); PLATELET 325 x1000/uL (130-400); RED BLOOD CELL COUNT 5.35 mill/uL (4.7-6.1); RED CELL DISTRIBUTION WIDTH 13.5 % (11.6-14.6); WHITE BLOOD COUNT 8.4 x1000/uL (4.5-11.0)
[2024-02-20 12:31] LABS: CHLORIDE 109 mEq/L (98-107); POTASSIUM 3.8 mEq/L (3.5-5.1); SODIUM 141 mEq/L (136-145)
[2024-02-20 12:32] LABS: CALCIUM 9.7 mg/dL (8.7-10.4); CARBON DIOXIDE 27 mEq/L (21-32)
[2024-02-20 12:37] LABS: CREATININE 1.1 mg/dL (0.6-1.3); GLUCOSE 99 mg/dL (70-105); TRIGLYCERIDE 264 mg/dL (0-150); UREA NITROGEN BLOOD 14 mg/dL (9-23)
[2024-02-20 12:38] LABS: ALANINE AMINOTRANSFERASE 75 IU/L (10-49); ALBUMIN 4.4 g/dL (3.2-4.8); ASPARTATE AMINOTRANSFERASE 51 IU/L (<34); C REACTIVE PROTEIN HIGH SENS 1.35 mg/l (<1.00); LDL CHOLESTEROL 120 mg/dL (5-100)
[2024-02-20 12:39] LABS: BILIRUBIN TOTAL 0.8 mg/dL (0.1-1.0); CHOLESTEROL 192 mg/dL (<200); HDL CHOLESTEROL 40 mg/dL (>55); PROTEIN TOTAL 7.1 g/dL (6.0-8.3)
[2024-02-20 13:32] LABS: HEPATITIS B SURFACE ANTIGEN NEGATIVE (Negative)
[2024-02-20 13:53] LABS: HEPATITIS A AB IGM NEGATIVE (Negative); HEPATITIS B CORE AB IGM NEGATIVE (Negative)
[2024-02-20 13:54] LABS: HEPATITIS C AB NON REACTIVE (Neg) (Negative)
[2024-02-20 14:18] LABS: ERYTHROCYTE SEDIMENTATION RATE 1 mm/hr (0-20)
== END | disposition home or self-care (01) ==
LOC: PVL 11:45
PROVIDERS: ATTEND Internal Medicine Geriatric Medicine
DX: I10 Essential (primary) hypertension (principal); E87.6 Hypokalemia; I77.6 Arteritis, unspecified
CPT/HCPCS: 36415; 80053; 80061; 85025; 85651; 86038; 86141; 86705; 86709; 87340; 93923; 93970

== ENCOUNTER → 2024-09-10 | Outpatient (CLI) | payer BC ==
[~2024-09-10] MED LIST changes: +LACT-390 MT; -LACT10SO3 MT
[2024-09-10 08:56] LABS: BASOPHILS % 0.7 % (0.0-2.0); EOSINOPHILS % 5.7 % (0.0-5.0); HEMATOCRIT. 49.3 % (42.0-52.0); HEMOGLOBIN. 17.1 g/dL (14.0-18.0); LYMPHOCYTES % 23.8 % (20.0-50.0); MEAN CORPUSCULAR HEMOGLOBIN 31.6 pg (28.0-32.0); MEAN CORPUSCULAR HGB CONC 34.7 g/dL (31.0-37.0); MEAN CORPUSCULAR VOLUME 90.9 fL (80.0-94.0); MEAN PLATELET VOLUME 7.1 fl (7.4-10.4); MONOCYTES % 7.8 % (2.0-8.0); PLATELET 334 x1000/uL (130-400); RED BLOOD CELL COUNT 5.42 mill/uL (4.7-6.1); RED CELL DISTRIBUTION WIDTH 13.6 % (11.6-14.6); WHITE BLOOD COUNT 9.4 x1000/uL (4.5-11.0)
[2024-09-10 09:49] LABS: CHLORIDE 105 mEq/L (98-107); POTASSIUM 3.5 mEq/L (3.5-5.1); SODIUM 146 mEq/L (136-145)
[2024-09-10 09:50] LABS: CALCIUM 9.1 mg/dL (8.7-10.4); CARBON DIOXIDE 33 mEq/L (21-32)
[2024-09-10 09:55] LABS: CREATININE 1.1 mg/dL (0.6-1.3); GLUCOSE 114 mg/dL (70-105)
[2024-09-10 09:56] LABS: TRIGLYCERIDE 235 mg/dL (0-150); UREA NITROGEN BLOOD 13 mg/dL (9-23)
[2024-09-10 09:57] LABS: ALANINE AMINOTRANSFERASE 56 IU/L (10-49); ASPARTATE AMINOTRANSFERASE 41 IU/L (<34); CHOLESTEROL 161 mg/dL (<200); LDL CHOLESTEROL 94 mg/dL (5-100)
[2024-09-10 09:58] LABS: BILIRUBIN TOTAL 0.9 mg/dL (0.1-1.0); HDL CHOLESTEROL 36 mg/dL (>55)
== END | disposition home or self-care (01) ==
LOC: LAB 08:23
PROVIDERS: ATTEND Internal Medicine Geriatric Medicine
DX: E78.5 Hyperlipidemia, unspecified (principal); E53.8 Deficiency of other specified B group vitamins; R74.01 Elevation of levels of liver transaminase levels
CPT/HCPCS: 36415; 80053; 80061; 83036; 85025

== ENCOUNTER → 2024-12-07 | Outpatient (CLI) | payer BC | END | disposition home or self-care (01) | LOC: RAD 14:54 | DX: S83.242A Other tear of medial meniscus, current injury, left knee, initial encounter (principal); S83.512A Sprain of anterior cruciate ligament of left knee, initial encounter; M17.12 Unilateral primary osteoarthritis, left knee; M94.262 Chondromalacia, left knee; M25.462 Effusion, left knee; M25.762 Osteophyte, left knee; M67.462 Ganglion, left knee; M25.562 Pain in left knee; X58.XXXA Exposure to other specified factors, initial encounter; Y93.89 Activity, other specified; Y92.89 Other specified places as the place of occurrence of the external cause; Y99.8 Other external cause status | CPT/HCPCS: 73721 ==

== ENCOUNTER → 2025-01-26 | Outpatient (CLI) | payer BC ==
[2025-01-26 17:20] LABS: CREATININE 1.0 mg/dL (0.6-1.3)
[2025-01-26 17:21] LABS: LDL CHOLESTEROL 106 mg/dL (5-100); TRIGLYCERIDE 207 mg/dL (0-150); UREA NITROGEN BLOOD 13 mg/dL (9-23)
[2025-01-26 17:22] LABS: ASPARTATE AMINOTRANSFERASE 22 IU/L (<34)
[2025-01-26 17:23] LABS: BILIRUBIN TOTAL 0.7 mg/dL (0.1-1.0); PROTEIN TOTAL 6.7 g/dL (6.0-8.3)
== END | disposition home or self-care (01) ==
LOC: LAB 15:44
PROVIDERS: ATTEND Internal Medicine Geriatric Medicine
DX: I10 Essential (primary) hypertension (principal); M62.838 Other muscle spasm
CPT/HCPCS: 36415; 80053; 80061; 83036; 84443